=== PATIENT | female | born 1935 | race Caucasian/White ===

== ENCOUNTER 2021-04-26 11:05 | Inpatient (IN) | payer MEDICARE ==
[2021-04-26 12:14] LABS: #Basophils 0.1 10x3/uL (0.0-0.2); #Eosinphils 0.1 10x3/uL (0.0-0.5); #Monocytes 0.6 10x3/uL (0.0-1.1); #Neutrophils 5.9 10x3/uL (1.5-8.4); %Basophils 0.7 % (0.0-2.0); %Eosinophils 1.2 % (0.0-6.0); %Lymphocytes 11.6 % (18.0-47.0); %Monocytes 7.6 % (0.0-10.0); %Neutrophils 78.6 % (40.0-75.0); Hemoglobin 13.2 g/dL (12.0-15.5); Mean Corpuscular HGB CONC 31.9 g/dL (32.0-36.0); Mean Corpuscular Hemoglobin 29.4 pg (27.0-33.0); Mean Corpuscular Volume 92.2 fl (81.6-98.3); Mean Platelet Volume 10.9 fl (7.4-10.4); Platelet Count 268 10x3/uL (150-450); RBC Distribution Width 13.5 % (11.5-14.5); Red Blood Cell (RBC) Count 4.49 10x6/uL (3.90-5.03); White Blood Cell (WBC) Count 7.5 10x3/uL (3.5-10.5)
[2021-04-26 12:31] LABS: ALT (SGPT) 16 U/L (8-55); AST (SGOT) 16 U/L (5-34); Albumin 4.1 g/dL (3.4-4.8); Alkaline Phosphatase 81 U/L (40-110); Anion Gap 14 mmol/L (10-20); BUN (Urea Nitrogen) 25 mg/dL (9.8-20.1); Bilirubin, Total 0.5 mg/dL (0.2-1.2); Calc. Creatinine Clearance 0 mL/min (70-130); Calcium 9.4 mg/dL (7.8-10.44); Carbon Dioxide 24 mmol/L (23-31); Chloride 105 mmol/L (98-107); Globulin 2.4 g/dL (2.4-3.5); Glucose 116 mg/dL (83-110); Lipase 22 U/L (8-78); Potassium 5.2 mmol/L (3.5-5.1); Protein, Total 6.5 g/dL (5.8-8.1); Sodium 138 mmol/L (136-145)
[2021-04-26 12:51] LABS: CKMB 2.1 ng/mL (0-6.6)
[2021-04-26] MEDS ORDERED: Aspirin 325 mg Enteric Coated Tablet ONE (13:28)
[2021-04-26] MEDS ORDERED: Nitroglycerin 2% Ointment 1 INCH/1 GM Packet ONE (13:29)
[2021-04-26 15:51] LABS: Troponin I 0.226 ng/mL (< 0.028)
[2021-04-26] MEDS: Sodium Chloride 0.9% 1,000 ML IV SCH (20:45)
[2021-04-26 21:15] LABS: Troponin I 0.211 ng/mL (< 0.028)
[2021-04-26 22:41] VITALS: BMI 25.0
[2021-04-26] MEDS ORDERED: FLU VACC QS2021-22(65YR UP)/PF 240 MCG/0.7 ML SYRINGE IM ONE (22:45)
[2021-04-27 04:30] LABS: #Basophils 0.1 10x3/uL (0.0-0.2); #Eosinphils 0.1 10x3/uL (0.0-0.5); #Monocytes 0.6 10x3/uL (0.0-1.1); #Neutrophils 5.7 10x3/uL (1.5-8.4); %Basophils 0.9 % (0.0-2.0); %Eosinophils 1.6 % (0.0-6.0); %Lymphocytes 15.1 % (18.0-47.0); %Monocytes 7.4 % (0.0-10.0); %Neutrophils 74.6 % (40.0-75.0); Hemoglobin 12.5 g/dL (12.0-15.5); Mean Corpuscular HGB CONC 32.2 g/dL (32.0-36.0); Mean Corpuscular Hemoglobin 29.2 pg (27.0-33.0); Mean Corpuscular Volume 90.7 fl (81.6-98.3); Mean Platelet Volume 10.7 fl (7.4-10.4); Platelet Count 260 10x3/uL (150-450); RBC Distribution Width 13.4 % (11.5-14.5); Red Blood Cell (RBC) Count 4.28 10x6/uL (3.90-5.03); White Blood Cell (WBC) Count 7.6 10x3/uL (3.5-10.5)
[2021-04-27 04:50] LABS: Anion Gap 15 mmol/L (10-20); BUN (Urea Nitrogen) 26 mg/dL (9.8-20.1); Calc. Creatinine Clearance 36 mL/min (70-130); Calcium 9.2 mg/dL (7.8-10.44); Carbon Dioxide 20 mmol/L (23-31); Chloride 109 mmol/L (98-107); Glucose 104 mg/dL (83-110); Potassium 4.3 mmol/L (3.5-5.1); Sodium 140 mmol/L (136-145)
[2021-04-27] MEDS ORDERED: Calcium Carbonate 500 MG ChewTAB PO PRN (05:38)
[2021-04-27] MEDS ORDERED: Pramipexole Di-HCl 1 MG TAB PO SCH ×3 (09:00→21:00)
[2021-04-27] MEDS: Sodium Chloride 0.9% 1,000 ML IV SCH (10:42)
[2021-04-27] MEDS: Acetaminophen 325 MG TAB PO PRN (12:55)
[2021-04-27] MEDS ORDERED: Labetalol HCl 100 MG/20 ML VIAL SLOW IVP PRN (13:56)
[2021-04-27] MEDS ORDERED: Metoprolol Tartrate 25 MG TAB PO SCH (14:00)
[2021-04-27] MEDS ORDERED: Amlodipine 5 MG TAB PO SCH (14:00)
[2021-04-27 19:42] LABS: SARS-CoV-2 NAA Rapid Test Not Detected (NotDetected)
[2021-04-27] MEDS: Metoprolol Tartrate 25 MG TAB PO SCH (20:48)
[2021-04-28] MEDS ORDERED: hydrALAZINE 20 MG/ML VIAL SLOW IVP PRN (00:36)
[2021-04-28 05:20] LABS: #Basophils 0.1 10x3/uL (0.0-0.2); #Eosinphils 0.1 10x3/uL (0.0-0.5); #Monocytes 0.6 10x3/uL (0.0-1.1); #Neutrophils 6.1 10x3/uL (1.5-8.4); %Eosinophils 1.5 % (0.0-6.0); %Lymphocytes 12.4 % (18.0-47.0); %Monocytes 7.4 % (0.0-10.0); %Neutrophils 77.4 % (40.0-75.0); Hemoglobin 13.5 g/dL (12.0-15.5); Mean Corpuscular HGB CONC 33.2 g/dL (32.0-36.0); Mean Corpuscular Hemoglobin 29.7 pg (27.0-33.0); Mean Corpuscular Volume 89.6 fl (81.6-98.3); Mean Platelet Volume 11.1 fl (7.4-10.4); Platelet Count 275 10x3/uL (150-450); RBC Distribution Width 13.4 % (11.5-14.5); Red Blood Cell (RBC) Count 4.54 10x6/uL (3.90-5.03); White Blood Cell (WBC) Count 7.9 10x3/uL (3.5-10.5)
[2021-04-28 05:40] LABS: ALT (SGPT) 17 U/L (8-55); AST (SGOT) 20 U/L (5-34); Albumin 4.2 g/dL (3.4-4.8); Alkaline Phosphatase 73 U/L (40-110); Anion Gap 15 mmol/L (10-20); BUN (Urea Nitrogen) 23 mg/dL (9.8-20.1); Bilirubin, Total 0.7 mg/dL (0.2-1.2); Calc. Creatinine Clearance 43 mL/min (70-130); Calcium 9.6 mg/dL (7.8-10.44); Carbon Dioxide 21 mmol/L (23-31); Chloride 107 mmol/L (98-107); Cholesterol 163 mg/dl (< 200 Desired); Globulin 2.8 g/dL (2.4-3.5); Glucose 105 mg/dL (83-110); HDL Cholesterol 54 mg/dL (>60 Neg Risk); LDL Cholesterol, Calculated 89 mg/dL; Magnesium 1.9 mg/dL (1.6-2.6); Phosphorus 3.3 mg/dL (2.3-4.7); Potassium 3.6 mmol/L (3.5-5.1); Sodium 139 mmol/L (136-145); Triglycerides 98 mg/dL (Less than 150)
[2021-04-28 05:52] LABS: Thyroid Stimulating Hormone 0.8149 uIU/mL (0.35-4.94)
[2021-04-28 07:55] LABS: Syphilis Antibody Nonreactive (Nonreactive); Syphilis Antibody Index 0.07 S/CO (<1.00 Non-Reactive)
[2021-04-28] MEDS: Metoprolol Tartrate 25 MG TAB PO SCH (07:59)
[2021-04-28] MEDS: Acetaminophen 325 MG TAB PO PRN (08:29)
[2021-04-28] MEDS ORDERED: Amlodipine 5 MG TAB PO SCH (09:00)
[2021-04-28] MEDS ORDERED: Spironolactone 25 MG TAB PO SCH (09:00)
[2021-04-28] MEDS ORDERED: Magnesium Oxide 400 MG TAB PO SCH (09:00)
[2021-04-28] MEDS ORDERED: Clopidogrel Bisulfate 75 MG TAB PO SCH (09:00)
[2021-04-28] MEDS ORDERED: Enoxaparin Sodium 30 MG/0.3 ML SYRINGE SC SCH (09:00)
[2021-04-28 11:30] LABS: Hemoglobin A1c 5.7 % (4.0-6.0)
[2021-04-28 12:05] VITALS: TEMP 98.2
[2021-04-28 12:13] VITALS: BP 135/64
== END 2021-04-28 16:25 | disposition home or self-care (01) | DRG 304 ==
LOC: CSHERS 11:05 → CSHTELE 11:06 → INTOOBSV 11:06 → OBSVTOIN 04-28 08:47
PROVIDERS: ADMIT Student in an Organized Health Care Education/Training Program; ATTEND Family Medicine
DX: I10 Essential (primary) hypertension (principal); G93.41 Metabolic encephalopathy; Z20.822 Contact with and (suspected) exposure to COVID-19; R73.03 Prediabetes; K21.9 Gastro-esophageal reflux disease without esophagitis; G89.29 Other chronic pain; M19.90 Unspecified osteoarthritis, unspecified site; F51.04 Psychophysiologic insomnia; I25.118 Atherosclerotic heart disease of native coronary artery with other forms of angina pectoris; R07.89 Other chest pain; G25.81 Restless legs syndrome; F03.90 Unspecified dementia, unspecified severity, without behavioral disturbance, psychotic disturbance, mood disturbance, and anxiety; I73.9 Peripheral vascular disease, unspecified; E78.2 Mixed hyperlipidemia; Z96.653 Presence of artificial knee joint, bilateral; Z88.2 Allergy status to sulfonamides; Z79.82 Long term (current) use of aspirin; Z79.899 Other long term (current) drug therapy; Z95.5 Presence of coronary angioplasty implant and graft; Z98.890 Other specified postprocedural states; Z88.8 Allergy status to other drugs, medicaments and biological substances
CPT/HCPCS: 0240U; 36415; 71045; 80048; 80053; 80061; 82553; 82607; 82746; 83036; 83690; 83735; 84100; 84436; 84443; 84484; 85025; 85379; 86780; 93005; 93010; 94760; 96372; 96374; G0378; J0360; J1650; J7050

== ENCOUNTER 2022-08-25 16:04 | Emergency (ER) | payer MEDICARE ==
[2022-08-25 17:10] LABS: #Basophils 0.1 10x3/uL (0.0-0.2); #Eosinphils 0.2 10x3/uL (0.0-0.5); #Monocytes 0.5 10x3/uL (0.0-1.1); #Neutrophils 4.9 10x3/uL (1.5-8.4); %Basophils 0.9 % (0.0-2.0); %Eosinophils 2.3 % (0.0-6.0); %Lymphocytes 13.7 % (18.0-47.0); %Monocytes 7.4 % (0.0-10.0); %Neutrophils 75.5 % (40.0-75.0); Hemoglobin 12.5 g/dL (12.0-15.5); Mean Corpuscular HGB CONC 33.3 g/dL (32.0-36.0); Mean Corpuscular Hemoglobin 29.9 pg (27.0-33.0); Mean Corpuscular Volume 89.7 fl (81.6-98.3); Mean Platelet Volume 10.3 fl (7.4-10.4); Platelet Count 323 10x3/uL (150-450); RBC Distribution Width 13.2 % (11.5-14.5); Red Blood Cell (RBC) Count 4.18 10x6/uL (3.90-5.03); White Blood Cell (WBC) Count 6.5 10x3/uL (3.5-10.5)
[2022-08-25 17:15] LABS: ALT (SGPT) 17 U/L (8-55); AST (SGOT) 17 U/L (5-34); Albumin 4.1 g/dL (3.4-4.8); Alkaline Phosphatase 87 U/L (40-110); Anion Gap 15 mmol/L (10-20); BUN (Urea Nitrogen) 21 mg/dL (9.8-20.1); Bilirubin, Total 0.5 mg/dL (0.2-1.2); CK (CPK) 70 U/L (29-168); Calc. Creatinine Clearance 0 mL/min (70-130); Calcium 9.5 mg/dL (7.8-10.44); Carbon Dioxide 22 mmol/L (23-31); Chloride 106 mmol/L (98-107); Estimated GFR 40; Globulin 2.5 g/dL (2.4-3.5); Glucose 100 mg/dL (83-110); Magnesium 2.2 mg/dL (1.6-2.6); Potassium 4.5 mmol/L (3.5-5.1); Protein, Total 6.6 g/dL (5.8-8.1); Sodium 138 mmol/L (136-145)
[2022-08-25 17:32] LABS: PTT 24.5 sec (22.0-33.0); Prothrombin Time 10.5 sec (9.5-12.1)
[2022-08-25 17:50] LABS: Bilirubin Neg (Negative); Blood, Urine Negative (Negative); Clarity Clear (Clear); Glucose, Urine (Dipstick) Normal (Negative); Ketone, Urine Negative (Negative); Leukocyte Negative (Negative); Nitrite Negative (Negative); Protein, Urine (Dipstick) 15 mg/dl (Neg-Trace); Urobilinogen Normal mg/dL (Less than 2)
== END 2022-08-25 19:00 | disposition home or self-care (01) ==
LOC: CSHERS 16:04
DX: S06.0X0A Concussion without loss of consciousness, initial encounter (principal); R53.1 Weakness; I25.10 Atherosclerotic heart disease of native coronary artery without angina pectoris; I11.0 Hypertensive heart disease with heart failure; I50.9 Heart failure, unspecified
CPT/HCPCS: 70450; 70486; 71045; 80053; 81003; 82550; 83735; 83880; 84443; 84484; 85025; 85610; 85730; 93005

== ENCOUNTER 2022-08-31 22:45 | Inpatient (IN) | payer MEDICARE ==
[2022-08-31 23:30] LABS: Bilirubin Neg (Negative); Blood, Urine Negative (Negative); Clarity Clear (Clear); Glucose, Urine (Dipstick) Normal (Negative); Ketone, Urine Negative (Negative); Leukocyte Negative (Negative); Nitrite Negative (Negative); Protein, Urine (Dipstick) Negative (Neg-Trace); Urobilinogen Normal mg/dL (Less than 2); pH, Urine 6.5 (5.0-9.0)
[2022-08-31 23:44] LABS: #Basophils 0.1 10x3/uL (0.0-0.2); #Eosinphils 0.2 10x3/uL (0.0-0.5); #Monocytes 0.5 10x3/uL (0.0-1.1); #Neutrophils 4.5 10x3/uL (1.5-8.4); %Basophils 1.2 % (0.0-2.0); %Eosinophils 3.2 % (0.0-6.0); %Lymphocytes 18.6 % (18.0-47.0); %Neutrophils 68.5 % (40.0-75.0); Hemoglobin 11.9 g/dL (12.0-15.5); Mean Corpuscular HGB CONC 32.5 g/dL (32.0-36.0); Mean Corpuscular Hemoglobin 29.8 pg (27.0-33.0); Mean Corpuscular Volume 91.5 fl (81.6-98.3); Mean Platelet Volume 10.5 fl (7.4-10.4); Platelet Count 285 10x3/uL (150-450); RBC Distribution Width 13.4 % (11.5-14.5); White Blood Cell (WBC) Count 6.6 10x3/uL (3.5-10.5)
[2022-09-01 00:07] LABS: ALT (SGPT) 14 U/L (8-55); AST (SGOT) 16 U/L (5-34); Albumin 3.8 g/dL (3.4-4.8); Alkaline Phosphatase 87 U/L (40-110); Anion Gap 15 mmol/L (10-20); BUN (Urea Nitrogen) 21 mg/dL (9.8-20.1); Bilirubin, Total 0.3 mg/dL (0.2-1.2); Calc. Creatinine Clearance 0 mL/min (70-130); Calcium 8.7 mg/dL (7.8-10.44); Carbon Dioxide 21 mmol/L (23-31); Chloride 107 mmol/L (98-107); Estimated GFR 37; Globulin 2.3 g/dL (2.4-3.5); Glucose 98 mg/dL (83-110); Lipase 29 U/L (8-78); Potassium 3.6 mmol/L (3.5-5.1); Protein, Total 6.1 g/dL (5.8-8.1); Sodium 139 mmol/L (136-145)
[2022-09-01] MEDS ORDERED: Aspirin Chewable 81 MG TAB ONE (00:31)
[2022-09-01 00:34] LABS: CKMB 2.3 ng/mL (0-6.6)
[2022-09-01] MEDS ORDERED: Acetaminophen 325 MG TAB PO PRN (01:11)
[2022-09-01] MEDS ORDERED: Senokot S 8.6-50 MG TAB PO PRN (01:11)
[2022-09-01] MEDS ORDERED: Ondansetron PF 4 MG/2 ML Vial IVP PRN (01:11)
[2022-09-01] MEDS ORDERED: Calcium Carbonate 500 MG ChewTAB PO PRN (01:11)
[2022-09-01] MEDS ORDERED: Guaifenesin DM 100-10/5 ML UDCUP PO PRN (01:11)
[2022-09-01] MEDS ORDERED: Nitroglycerin 0.4 MG TAB (25 Tab Bottle) SL PRN (01:15)
[2022-09-01 04:35] LABS: CKMB 3.9 ng/mL (0-6.6)
[2022-09-01] MEDS: Spironolactone 25 MG TAB PO SCH (08:45)
[2022-09-01] MEDS: Clopidogrel Bisulfate 75 MG TAB PO SCH (08:46)
[2022-09-01] MEDS: Famotidine 20 MG TAB PO SCH (08:46)
[2022-09-01] MEDS: Amlodipine 5 MG TAB PO SCH (08:46)
[2022-09-01] MEDS: Magnesium Oxide 400 MG TAB PO SCH (08:47)
[2022-09-01] MEDS: Pramipexole Di-HCl 1 MG TAB PO SCH (08:48)
[2022-09-01] MEDS: Potassium Chloride 10 MEQ TAB PO SCH (08:48)
[2022-09-01] MEDS ORDERED: Famotidine 20 MG TAB ONE (08:54)
[2022-09-01] MEDS ORDERED: Amlodipine 5 MG TAB ONE (08:54)
[2022-09-01] MEDS ORDERED: Metoprolol Tartrate 25 MG TAB ONE (08:55)
[2022-09-01] MEDS ORDERED: Clopidogrel Bisulfate 75 MG TAB ONE (08:56)
[2022-09-01] MEDS ORDERED: Metoprolol Tartrate 25 MG TAB PO SCH (09:00)
[2022-09-01] MEDS ORDERED: Aspirin 81 mg Enteric Coated Tablet PO SCH (09:00)
[2022-09-01] MEDS ORDERED: Iopamidol 300 61% 100 ML VIAL FS ONE (10:39)
[2022-09-01 11:42] LABS: Anion Gap 17 mmol/L (10-20); BUN (Urea Nitrogen) 21 mg/dL (9.8-20.1); Calc. Creatinine Clearance 0 mL/min (70-130); Calcium 8.7 mg/dL (7.8-10.44); Carbon Dioxide 18 mmol/L (23-31); Chloride 111 mmol/L (98-107); Estimated GFR 48; Glucose 104 mg/dL (83-110); Potassium 4.9 mmol/L (3.5-5.1); Sodium 141 mmol/L (136-145)
[2022-09-01 11:50] VITALS: BMI 24.5
[2022-09-01] MEDS ORDERED: FLU VACC QS2022-23(65YR UP)/PF 240 MCG/0.7 ML SYRINGE IM ONE (12:00)
[2022-09-01] MEDS: Carvedilol 6.25 MG TAB PO SCH (17:53)
[2022-09-01 20:05] LABS: Troponin I 0.273 ng/mL (< 0.028)
[2022-09-01] MEDS: Simvastatin 10 MG TAB PO SCH (21:13)
[2022-09-02 04:27] LABS: #Basophils 0.1 10x3/uL (0.0-0.2); #Eosinphils 0.3 10x3/uL (0.0-0.5); #Monocytes 0.5 10x3/uL (0.0-1.1); #Neutrophils 3.6 10x3/uL (1.5-8.4); %Basophils 1.7 % (0.0-2.0); %Eosinophils 5.9 % (0.0-6.0); %Lymphocytes 16.5 % (18.0-47.0); %Monocytes 9.4 % (0.0-10.0); %Neutrophils 66.1 % (40.0-75.0); Mean Corpuscular HGB CONC 32.6 g/dL (32.0-36.0); Mean Corpuscular Hemoglobin 29.6 pg (27.0-33.0); Mean Corpuscular Volume 90.9 fl (81.6-98.3); Mean Platelet Volume 10.7 fl (7.4-10.4); Platelet Count 281 10x3/uL (150-450); RBC Distribution Width 13.5 % (11.5-14.5); Red Blood Cell (RBC) Count 4.39 10x6/uL (3.90-5.03); White Blood Cell (WBC) Count 5.4 10x3/uL (3.5-10.5)
[2022-09-02 04:49] LABS: Anion Gap 14 mmol/L (10-20); BUN (Urea Nitrogen) 18 mg/dL (9.8-20.1); Calc. Creatinine Clearance 31 mL/min (70-130); Calcium 9.3 mg/dL (7.8-10.44); Carbon Dioxide 23 mmol/L (23-31); Chloride 108 mmol/L (98-107); Estimated GFR 44; Glucose 98 mg/dL (83-110); Magnesium 2.1 mg/dL (1.6-2.6); Phosphorus 3.8 mg/dL (2.3-4.7); Potassium 4.2 mmol/L (3.5-5.1); Sodium 141 mmol/L (136-145)
[2022-09-02] MEDS: Carvedilol 6.25 MG TAB PO SCH ×2 (06:43→17:06)
[2022-09-02] MEDS: Amlodipine 5 MG TAB PO SCH (06:44)
[2022-09-02] MEDS: Clopidogrel Bisulfate 75 MG TAB PO SCH (08:37)
[2022-09-02] MEDS: Pramipexole Di-HCl 1 MG TAB PO SCH (08:37)
[2022-09-02] MEDS: Spironolactone 25 MG TAB PO SCH (08:38)
[2022-09-02] MEDS: Aspirin 81 mg Enteric Coated Tablet PO SCH (08:38)
[2022-09-02] MEDS: Famotidine 20 MG TAB PO SCH (08:41)
[2022-09-02] MEDS: Potassium Chloride 10 MEQ TAB PO SCH (08:41)
[2022-09-02] MEDS: Magnesium Oxide 400 MG TAB PO SCH (08:42)
[2022-09-02 09:04] LABS: Troponin I 0.177 ng/mL (< 0.028)
[2022-09-02] MEDS ORDERED: QUEtiapine 25 MG TAB PO SCH (15:00)
[2022-09-02] MEDS: CEFAZOLIN 2 GM in Sodium Chloride 0.9% 100 ML IVPB SCH ×2 (15:44→21:01)
[2022-09-02] MEDS: Simvastatin 10 MG TAB PO SCH (20:52)
[2022-09-02] MEDS: QUEtiapine 25 MG TAB PO SCH (22:00)
[2022-09-03 04:33] LABS: #Basophils 0.1 10x3/uL (0.0-0.2); #Eosinphils 0.3 10x3/uL (0.0-0.5); #Monocytes 0.4 10x3/uL (0.0-1.1); #Neutrophils 3.5 10x3/uL (1.5-8.4); %Basophils 1.3 % (0.0-2.0); %Eosinophils 4.8 % (0.0-6.0); %Lymphocytes 20.9 % (18.0-47.0); %Monocytes 7.8 % (0.0-10.0); Hemoglobin 12.8 g/dL (12.0-15.5); Mean Corpuscular HGB CONC 32.6 g/dL (32.0-36.0); Mean Corpuscular Hemoglobin 29.5 pg (27.0-33.0); Mean Corpuscular Volume 90.6 fl (81.6-98.3); Mean Platelet Volume 10.3 fl (7.4-10.4); Platelet Count 271 10x3/uL (150-450); RBC Distribution Width 13.6 % (11.5-14.5); Red Blood Cell (RBC) Count 4.34 10x6/uL (3.90-5.03); White Blood Cell (WBC) Count 5.4 10x3/uL (3.5-10.5)
[2022-09-03 04:59] LABS: Anion Gap 17 mmol/L (10-20); BUN (Urea Nitrogen) 21 mg/dL (9.8-20.1); Calc. Creatinine Clearance 32 mL/min (70-130); Calcium 9.1 mg/dL (7.8-10.44); Carbon Dioxide 20 mmol/L (23-31); Chloride 108 mmol/L (98-107); Estimated GFR 46; Glucose 97 mg/dL (83-110); Potassium 4.4 mmol/L (3.5-5.1); Sodium 141 mmol/L (136-145)
[2022-09-03] MEDS: CEFAZOLIN 2 GM in Sodium Chloride 0.9% 100 ML IVPB SCH (05:51)
[2022-09-03] MEDS: Aspirin 81 mg Enteric Coated Tablet PO SCH (10:37)
[2022-09-03] MEDS: Amlodipine 5 MG TAB PO SCH (10:37)
[2022-09-03] MEDS: Famotidine 20 MG TAB PO SCH (10:38)
[2022-09-03] MEDS: Potassium Chloride 10 MEQ TAB PO SCH (10:38)
[2022-09-03] MEDS: Pramipexole Di-HCl 1 MG TAB PO SCH (10:38)
[2022-09-03] MEDS: Clopidogrel Bisulfate 75 MG TAB PO SCH (10:38)
[2022-09-03] MEDS: Spironolactone 25 MG TAB PO SCH (10:39)
[2022-09-03] MEDS: Magnesium Oxide 400 MG TAB PO SCH (10:40)
[2022-09-03] MEDS: Carvedilol 6.25 MG TAB PO SCH ×2 (10:40→16:37)
[2022-09-03 16:56] LABS: Syphilis Antibody Nonreactive (Nonreactive); Syphilis Antibody Index 0.06 S/CO (<1.00 Non-Reactive)
[2022-09-03] MEDS: QUEtiapine 25 MG TAB PO SCH (21:37)
[2022-09-03] MEDS: Simvastatin 10 MG TAB PO SCH (21:37)
[2022-09-04 05:12] LABS: Anion Gap 15 mmol/L (10-20); BUN (Urea Nitrogen) 21 mg/dL (9.8-20.1); Calc. Creatinine Clearance 30 mL/min (70-130); Calcium 9.5 mg/dL (7.8-10.44); Carbon Dioxide 22 mmol/L (23-31); Chloride 108 mmol/L (98-107); Estimated GFR 41; Glucose 99 mg/dL (83-110); Potassium 4.4 mmol/L (3.5-5.1); Sodium 141 mmol/L (136-145)
[2022-09-04 05:26] LABS: #Basophils 0.1 10x3/uL (0.0-0.2); #Eosinphils 0.3 10x3/uL (0.0-0.5); #Monocytes 0.5 10x3/uL (0.0-1.1); #Neutrophils 3.9 10x3/uL (1.5-8.4); %Basophils 1.5 % (0.0-2.0); %Eosinophils 5.3 % (0.0-6.0); %Monocytes 8.4 % (0.0-10.0); %Neutrophils 66.6 % (40.0-75.0); Hemoglobin 13.3 g/dL (12.0-15.5); Mean Corpuscular Hemoglobin 29.2 pg (27.0-33.0); Mean Corpuscular Volume 91.2 fl (81.6-98.3); Mean Platelet Volume 10.6 fl (7.4-10.4); Platelet Count 277 10x3/uL (150-450); RBC Distribution Width 13.6 % (11.5-14.5); Red Blood Cell (RBC) Count 4.56 10x6/uL (3.90-5.03); White Blood Cell (WBC) Count 5.8 10x3/uL (3.5-10.5)
[2022-09-04] MEDS: Aspirin 81 mg Enteric Coated Tablet PO SCH (08:37)
[2022-09-04] MEDS: Amlodipine 5 MG TAB PO SCH (08:38)
[2022-09-04] MEDS: Spironolactone 25 MG TAB PO SCH (08:38)
[2022-09-04] MEDS: Carvedilol 6.25 MG TAB PO SCH ×2 (08:38→16:44)
[2022-09-04] MEDS: Famotidine 20 MG TAB PO SCH (08:38)
[2022-09-04] MEDS: Folic Acid 1 MG TAB PO SCH (08:38)
[2022-09-04] MEDS: Pramipexole Di-HCl 1 MG TAB PO SCH (08:39)
[2022-09-04] MEDS: Clopidogrel Bisulfate 75 MG TAB PO SCH (08:39)
[2022-09-04] MEDS: Potassium Chloride 10 MEQ TAB PO SCH (10:18)
[2022-09-04] MEDS: Magnesium Oxide 400 MG TAB PO SCH (10:18)
[2022-09-04] MEDS: QUEtiapine 25 MG TAB PO SCH (21:11)
[2022-09-04] MEDS: Simvastatin 10 MG TAB PO SCH (21:11)
[2022-09-05 05:44] LABS: #Basophils 0.1 10x3/uL (0.0-0.2); #Eosinphils 0.3 10x3/uL (0.0-0.5); #Monocytes 0.5 10x3/uL (0.0-1.1); #Neutrophils 4.2 10x3/uL (1.5-8.4); %Eosinophils 4.8 % (0.0-6.0); %Lymphocytes 16.2 % (18.0-47.0); %Monocytes 8.3 % (0.0-10.0); %Neutrophils 69.4 % (40.0-75.0); Hemoglobin 13.2 g/dL (12.0-15.5); Mean Corpuscular HGB CONC 32.5 g/dL (32.0-36.0); Mean Corpuscular Hemoglobin 29.4 pg (27.0-33.0); Mean Corpuscular Volume 90.4 fl (81.6-98.3); Platelet Count 273 10x3/uL (150-450); RBC Distribution Width 13.6 % (11.5-14.5); Red Blood Cell (RBC) Count 4.49 10x6/uL (3.90-5.03); White Blood Cell (WBC) Count 6.1 10x3/uL (3.5-10.5)
[2022-09-05 05:56] LABS: Anion Gap 17 mmol/L (10-20); BUN (Urea Nitrogen) 24 mg/dL (9.8-20.1); Calc. Creatinine Clearance 30 mL/min (70-130); Calcium 9.4 mg/dL (7.8-10.44); Carbon Dioxide 17 mmol/L (23-31); Chloride 107 mmol/L (98-107); Estimated GFR 42; Glucose 89 mg/dL (83-110); Sodium 136 mmol/L (136-145)
[2022-09-05 06:01] LABS: Potassium 5.2 mmol/L (3.5-5.1)
[2022-09-05] MEDS: Aspirin 81 mg Enteric Coated Tablet PO SCH (08:37)
[2022-09-05] MEDS: Carvedilol 6.25 MG TAB PO SCH ×2 (08:37→17:13)
[2022-09-05] MEDS: Spironolactone 25 MG TAB PO SCH (08:37)
[2022-09-05] MEDS: Amlodipine 5 MG TAB PO SCH (08:37)
[2022-09-05] MEDS: Folic Acid 1 MG TAB PO SCH (08:37)
[2022-09-05] MEDS: Potassium Chloride 10 MEQ TAB PO SCH (08:38)
[2022-09-05] MEDS: Famotidine 20 MG TAB PO SCH (08:38)
[2022-09-05] MEDS: Clopidogrel Bisulfate 75 MG TAB PO SCH (08:38)
[2022-09-05] MEDS: Pramipexole Di-HCl 1 MG TAB PO SCH (08:38)
[2022-09-05] MEDS: Magnesium Oxide 400 MG TAB PO SCH (08:39)
[2022-09-05 16:46] LABS: Anion Gap 15 mmol/L (10-20); BUN (Urea Nitrogen) 30 mg/dL (9.8-20.1); Calc. Creatinine Clearance 23 mL/min (70-130); Calcium 9.1 mg/dL (7.8-10.44); Carbon Dioxide 21 mmol/L (23-31); Chloride 106 mmol/L (98-107); Estimated GFR 30; Glucose 112 mg/dL (83-110); Potassium 4.7 mmol/L (3.5-5.1); Sodium 137 mmol/L (136-145)
[2022-09-05] MEDS ORDERED: QUEtiapine 25 MG TAB ONE (19:44)
[2022-09-05] MEDS: Simvastatin 10 MG TAB PO SCH (21:54)
[2022-09-05] MEDS: QUEtiapine 25 MG TAB PO SCH (21:54)
[2022-09-06] MEDS ORDERED: Acetaminophen 325 MG TAB PO SCH (03:00)
[2022-09-06 03:49] LABS: #Basophils 0.1 10x3/uL (0.0-0.2); #Eosinphils 0.3 10x3/uL (0.0-0.5); #Monocytes 0.5 10x3/uL (0.0-1.1); #Neutrophils 3.3 10x3/uL (1.5-8.4); %Basophils 1.5 % (0.0-2.0); %Eosinophils 5.6 % (0.0-6.0); %Lymphocytes 22.3 % (18.0-47.0); %Monocytes 9.5 % (0.0-10.0); %Neutrophils 60.7 % (40.0-75.0); Hemoglobin 13.3 g/dL (12.0-15.5); Mean Corpuscular HGB CONC 32.1 g/dL (32.0-36.0); Mean Corpuscular Hemoglobin 29.6 pg (27.0-33.0); Mean Platelet Volume 10.5 fl (7.4-10.4); Platelet Count 257 10x3/uL (150-450); RBC Distribution Width 13.5 % (11.5-14.5); White Blood Cell (WBC) Count 5.4 10x3/uL (3.5-10.5)
[2022-09-06 03:59] LABS: Anion Gap 16 mmol/L (10-20); BUN (Urea Nitrogen) 36 mg/dL (9.8-20.1); Calc. Creatinine Clearance 26 mL/min (70-130); Calcium 9.3 mg/dL (7.8-10.44); Carbon Dioxide 19 mmol/L (23-31); Chloride 107 mmol/L (98-107); Estimated GFR 35; Glucose 94 mg/dL (83-110); Magnesium 2.3 mg/dL (1.6-2.6); Phosphorus 4.2 mg/dL (2.3-4.7); Potassium 4.5 mmol/L (3.5-5.1); Sodium 137 mmol/L (136-145)
[2022-09-06] MEDS: Famotidine 20 MG TAB PO SCH (10:50)
[2022-09-06] MEDS: Carvedilol 6.25 MG TAB PO SCH ×2 (10:50→18:40)
[2022-09-06] MEDS: Aspirin 81 mg Enteric Coated Tablet PO SCH (10:51)
[2022-09-06] MEDS: Clopidogrel Bisulfate 75 MG TAB PO SCH (10:51)
[2022-09-06] MEDS: Folic Acid 1 MG TAB PO SCH (10:51)
[2022-09-06] MEDS: Pramipexole Di-HCl 1 MG TAB PO SCH (10:51)
[2022-09-06] MEDS: Magnesium Oxide 400 MG TAB PO SCH (10:52)
[2022-09-06] MEDS: Amlodipine 5 MG TAB PO SCH (10:52)
[2022-09-06] MEDS: QUEtiapine 25 MG TAB PO SCH (21:39)
[2022-09-06] MEDS: Simvastatin 10 MG TAB PO SCH (21:39)
[2022-09-07 03:44] LABS: #Basophils 0.1 10x3/uL (0.0-0.2); #Eosinphils 0.3 10x3/uL (0.0-0.5); #Monocytes 0.6 10x3/uL (0.0-1.1); #Neutrophils 3.5 10x3/uL (1.5-8.4); %Basophils 1.6 % (0.0-2.0); %Eosinophils 4.8 % (0.0-6.0); %Lymphocytes 20.8 % (18.0-47.0); %Monocytes 9.9 % (0.0-10.0); %Neutrophils 62.7 % (40.0-75.0); Hemoglobin 12.9 g/dL (12.0-15.5); Mean Corpuscular HGB CONC 31.8 g/dL (32.0-36.0); Mean Corpuscular Hemoglobin 29.5 pg (27.0-33.0); Mean Corpuscular Volume 92.7 fl (81.6-98.3); Mean Platelet Volume 10.5 fl (7.4-10.4); Platelet Count 256 10x3/uL (150-450); RBC Distribution Width 13.5 % (11.5-14.5); Red Blood Cell (RBC) Count 4.38 10x6/uL (3.90-5.03); White Blood Cell (WBC) Count 5.6 10x3/uL (3.5-10.5)
[2022-09-07 03:54] LABS: Anion Gap 15 mmol/L (10-20); BUN (Urea Nitrogen) 44 mg/dL (9.8-20.1); Calc. Creatinine Clearance 25 mL/min (70-130); Calcium 9.3 mg/dL (7.8-10.44); Carbon Dioxide 19 mmol/L (23-31); Chloride 109 mmol/L (98-107); Estimated GFR 34; Glucose 94 mg/dL (83-110); Potassium 4.6 mmol/L (3.5-5.1); Sodium 138 mmol/L (136-145)
[2022-09-07] MEDS: Sodium Chloride 0.9% 1,000 ML IV SCH ×2 (09:30→20:43)
[2022-09-07] MEDS: Carvedilol 6.25 MG TAB PO SCH ×2 (09:31→18:49)
[2022-09-07] MEDS: Aspirin 81 mg Enteric Coated Tablet PO SCH (09:32)
[2022-09-07] MEDS: Amlodipine 5 MG TAB PO SCH (09:32)
[2022-09-07] MEDS: Folic Acid 1 MG TAB PO SCH (09:33)
[2022-09-07] MEDS: Clopidogrel Bisulfate 75 MG TAB PO SCH (09:33)
[2022-09-07] MEDS: Famotidine 20 MG TAB PO SCH (09:33)
[2022-09-07] MEDS: Pramipexole Di-HCl 1 MG TAB PO SCH (09:34)
[2022-09-07] MEDS: Magnesium Oxide 400 MG TAB PO SCH (09:34)
[2022-09-07 16:51] LABS: Creatinine, Urine 31.06 mg/dL (47-110)
[2022-09-07] MEDS: Simvastatin 10 MG TAB PO SCH (20:43)
[2022-09-07] MEDS: QUEtiapine 25 MG TAB PO SCH (20:43)
[2022-09-08 04:56] LABS: #Basophils 0.1 10x3/uL (0.0-0.2); #Eosinphils 0.3 10x3/uL (0.0-0.5); #Monocytes 0.5 10x3/uL (0.0-1.1); #Neutrophils 2.8 10x3/uL (1.5-8.4); %Basophils 1.5 % (0.0-2.0); %Eosinophils 5.6 % (0.0-6.0); %Lymphocytes 24.3 % (18.0-47.0); %Monocytes 10.8 % (0.0-10.0); %Neutrophils 57.4 % (40.0-75.0); Hemoglobin 12.4 g/dL (12.0-15.5); Mean Corpuscular HGB CONC 31.4 g/dL (32.0-36.0); Mean Corpuscular Hemoglobin 29.2 pg (27.0-33.0); Mean Corpuscular Volume 93.2 fl (81.6-98.3); Mean Platelet Volume 10.7 fl (7.4-10.4); Platelet Count 229 10x3/uL (150-450); RBC Distribution Width 13.4 % (11.5-14.5); Red Blood Cell (RBC) Count 4.24 10x6/uL (3.90-5.03); White Blood Cell (WBC) Count 4.8 10x3/uL (3.5-10.5)
[2022-09-08 05:06] LABS: Anion Gap 14 mmol/L (10-20); BUN (Urea Nitrogen) 29 mg/dL (9.8-20.1); Calc. Creatinine Clearance 31 mL/min (70-130); Calcium 8.9 mg/dL (7.8-10.44); Carbon Dioxide 21 mmol/L (23-31); Chloride 109 mmol/L (98-107); Estimated GFR 44; Glucose 88 mg/dL (83-110); Potassium 4.5 mmol/L (3.5-5.1); Sodium 139 mmol/L (136-145)
[2022-09-08] MEDS: Amlodipine 5 MG TAB PO SCH (08:01)
[2022-09-08] MEDS: Carvedilol 6.25 MG TAB PO SCH (08:01)
[2022-09-08] MEDS: Famotidine 20 MG TAB PO SCH (08:02)
[2022-09-08] MEDS: Aspirin 81 mg Enteric Coated Tablet PO SCH (08:02)
[2022-09-08] MEDS: Folic Acid 1 MG TAB PO SCH (08:02)
[2022-09-08] MEDS: Clopidogrel Bisulfate 75 MG TAB PO SCH (08:02)
[2022-09-08] MEDS: Magnesium Oxide 400 MG TAB PO SCH (08:02)
[2022-09-08] MEDS: Pramipexole Di-HCl 1 MG TAB PO SCH (08:03)
[2022-09-08] MEDS: Sodium Chloride 0.9% 1,000 ML IV SCH (10:21)
[2022-09-08 11:49] VITALS: BP 122/65; TEMP 97.1
== END 2022-09-08 12:53 | DRG 281 ==
LOC: CSHERS 22:45 → INTOOBSV 09-01 01:01 → CSHERHOLD 09-01 01:01 → OBSVTOIN 09-01 04:54 → CSHTELE 09-01 10:36
PROVIDERS: ADMIT Student in an Organized Health Care Education/Training Program; ATTEND Internal Medicine
DX: I21.4 Non-ST elevation (NSTEMI) myocardial infarction (principal); I13.0 Hypertensive heart and chronic kidney disease with heart failure and stage 1 through stage 4 chronic kidney disease, or unspecified chronic kidney disease; I73.9 Peripheral vascular disease, unspecified; I25.10 Atherosclerotic heart disease of native coronary artery without angina pectoris; M19.90 Unspecified osteoarthritis, unspecified site; G25.81 Restless legs syndrome; K21.9 Gastro-esophageal reflux disease without esophagitis; Z96.653 Presence of artificial knee joint, bilateral; N18.30 Chronic kidney disease, stage 3 unspecified; G89.29 Other chronic pain; F03.90 Unspecified dementia, unspecified severity, without behavioral disturbance, psychotic disturbance, mood disturbance, and anxiety; F41.9 Anxiety disorder, unspecified; E78.2 Mixed hyperlipidemia; E87.5 Hyperkalemia; Z88.0 Allergy status to penicillin; Z79.82 Long term (current) use of aspirin; Z79.899 Other long term (current) drug therapy; Z95.5 Presence of coronary angioplasty implant and graft; Z98.890 Other specified postprocedural states; Z90.710 Acquired absence of both cervix and uterus
CPT/HCPCS: 36415; 70450; 71045; 71260; 74160; 76770; 80048; 80053; 81003; 82553; 82570; 82607; 83690; 83735; 83880; 84100; 84300; 84443; 84484; 85025; 86780; 93005; 93306; J1650; J3490; J7050; Q9967

== ENCOUNTER 2022-09-25 09:37 | Observation (INO) | payer MEDICARE ==
[2022-09-25 11:03] LABS: #Basophils 0.1 10x3/uL (0.0-0.2); #Eosinphils 0.1 10x3/uL (0.0-0.5); #Monocytes 0.4 10x3/uL (0.0-1.1); %Basophils 0.8 % (0.0-2.0); %Eosinophils 1.5 % (0.0-6.0); %Monocytes 5.8 % (0.0-10.0); %Neutrophils 82.6 % (40.0-75.0); Hemoglobin 11.9 g/dL (12.0-15.5); Mean Corpuscular HGB CONC 32.1 g/dL (32.0-36.0); Mean Corpuscular Hemoglobin 29.6 pg (27.0-33.0); Mean Corpuscular Volume 92.3 fl (81.6-98.3); Mean Platelet Volume 10.7 fl (7.4-10.4); Platelet Count 293 10x3/uL (150-450); RBC Distribution Width 13.5 % (11.5-14.5); Red Blood Cell (RBC) Count 4.02 10x6/uL (3.90-5.03); White Blood Cell (WBC) Count 7.3 10x3/uL (3.5-10.5)
[2022-09-25 11:09] LABS: ALT (SGPT) 12 U/L (8-55); AST (SGOT) 15 U/L (5-34); Alkaline Phosphatase 70 U/L (40-110); Anion Gap 15 mmol/L (10-20); BUN (Urea Nitrogen) 22 mg/dL (9.8-20.1); Bilirubin, Total 0.5 mg/dL (0.2-1.2); Calc. Creatinine Clearance 0 mL/min (70-130); Calcium 9.1 mg/dL (7.8-10.44); Carbon Dioxide 22 mmol/L (23-31); Chloride 108 mmol/L (98-107); Estimated GFR 42; Glucose 100 mg/dL (83-110); Potassium 4.5 mmol/L (3.5-5.1); Sodium 140 mmol/L (136-145)
[2022-09-25 11:26] LABS: CKMB 1.9 ng/mL (0-6.6)
[2022-09-25] MEDS ORDERED: Aspirin Chewable 81 MG TAB ONE (13:34)
[2022-09-25] MEDS ORDERED: Senokot S 8.6-50 MG TAB PO PRN (14:27)
[2022-09-25] MEDS ORDERED: Acetaminophen 325 MG TAB PO PRN (14:27)
[2022-09-25] MEDS ORDERED: Calcium Carbonate 500 MG ChewTAB PO PRN (14:27)
[2022-09-25] MEDS ORDERED: Guaifenesin DM 100-10/5 ML UDCUP PO PRN (14:35)
[2022-09-25] MEDS ORDERED: Furosemide 40 MG/4 ML VIAL SLOW IVP SCH (14:45)
[2022-09-25 15:41] LABS: Troponin I 0.037 ng/mL (< 0.028)
[2022-09-25 15:45] VITALS: BMI 24.0
[2022-09-25 19:39] LABS: Troponin I 0.036 ng/mL (< 0.028)
[2022-09-25] MEDS: QUEtiapine 25 MG TAB PO SCH (22:53)
[2022-09-25] MEDS: Simvastatin 10 MG TAB PO SCH (22:53)
[2022-09-26 06:27] LABS: ALT (SGPT) 11 U/L (8-55); AST (SGOT) 16 U/L (5-34); Albumin 3.9 g/dL (3.4-4.8); Alkaline Phosphatase 67 U/L (40-110); Anion Gap 14 mmol/L (10-20); BUN (Urea Nitrogen) 18 mg/dL (9.8-20.1); Bilirubin, Total 0.4 mg/dL (0.2-1.2); Calc. Creatinine Clearance 29 mL/min (70-130); Calcium 9.3 mg/dL (7.8-10.44); Carbon Dioxide 21 mmol/L (23-31); Chloride 108 mmol/L (98-107); Estimated GFR 41; Globulin 2.5 g/dL (2.4-3.5); Glucose 101 mg/dL (83-110); Protein, Total 6.4 g/dL (5.8-8.1); Sodium 139 mmol/L (136-145)
[2022-09-26] MEDS: Furosemide 20 MG/2 ML VIAL SLOW IVP SCH ×2 (06:37→14:00)
[2022-09-26 07:18] LABS: #Basophils 0.1 10x3/uL (0.0-0.2); #Eosinphils 0.2 10x3/uL (0.0-0.5); #Monocytes 0.5 10x3/uL (0.0-1.1); #Neutrophils 4.2 10x3/uL (1.5-8.4); %Basophils 1.2 % (0.0-2.0); %Lymphocytes 17.4 % (18.0-47.0); %Monocytes 8.1 % (0.0-10.0); Hemoglobin 12.1 g/dL (12.0-15.5); Mean Corpuscular HGB CONC 32.9 g/dL (32.0-36.0); Mean Corpuscular Hemoglobin 29.8 pg (27.0-33.0); Mean Corpuscular Volume 90.6 fl (81.6-98.3); Mean Platelet Volume 10.7 fl (7.4-10.4); Platelet Count 279 10x3/uL (150-450); RBC Distribution Width 13.4 % (11.5-14.5); Red Blood Cell (RBC) Count 4.06 10x6/uL (3.90-5.03)
[2022-09-26] MEDS ORDERED: Pramipexole Di-HCl 1 MG TAB PO SCH ×2 (09:00→17:00)
[2022-09-26] MEDS: Famotidine 20 MG TAB PO SCH (13:22)
[2022-09-26] MEDS: Folic Acid 1 MG TAB PO SCH (13:22)
[2022-09-26] MEDS: Aspirin 81 mg Enteric Coated Tablet PO SCH (13:23)
[2022-09-26] MEDS: Clopidogrel Bisulfate 75 MG TAB PO SCH (13:23)
[2022-09-26] MEDS: Spironolactone 25 MG TAB PO SCH (13:23)
[2022-09-26] MEDS: Amlodipine 5 MG TAB PO SCH (13:23)
[2022-09-26] MEDS ORDERED: Furosemide 40 MG/4 ML VIAL ONE (17:27)
[2022-09-26] MEDS ORDERED: Furosemide 20 MG/2 ML VIAL SLOW IVP SCH (17:45)
[2022-09-26] MEDS: Simvastatin 10 MG TAB PO SCH (23:36)
[2022-09-26] MEDS: QUEtiapine 25 MG TAB PO SCH (23:36)
[2022-09-27] MEDS: Clopidogrel Bisulfate 75 MG TAB PO SCH (08:58)
[2022-09-27] MEDS: Famotidine 20 MG TAB PO SCH (08:58)
[2022-09-27] MEDS: Aspirin 81 mg Enteric Coated Tablet PO SCH (08:58)
[2022-09-27] MEDS: Folic Acid 1 MG TAB PO SCH (08:59)
[2022-09-27] MEDS: Amlodipine 5 MG TAB PO SCH (08:59)
[2022-09-27] MEDS: Spironolactone 25 MG TAB PO SCH (08:59)
[2022-09-27] MEDS: Pramipexole Di-HCl 1 MG TAB PO SCH ×2 (09:03→09:10)
[2022-09-27 12:51] LABS: Troponin I 0.021 ng/mL (< 0.028)
[2022-09-27 15:25] LABS: Troponin I 0.031 ng/mL (< 0.028)
[2022-09-27 17:05] VITALS: BP 117/55; TEMP 98.2
== END 2022-09-27 16:17 | disposition home or self-care (01) ==
LOC: SUATTDRO 09:37 → CSHERS 09:37 → CSHTELE 14:16 → INTOOBSV 14:16
PROVIDERS: ADMIT Internal Medicine; ATTEND Internal Medicine
DX: I13.0 Hypertensive heart and chronic kidney disease with heart failure and stage 1 through stage 4 chronic kidney disease, or unspecified chronic kidney disease (principal); I50.33 Acute on chronic diastolic (congestive) heart failure; N18.30 Chronic kidney disease, stage 3 unspecified; N17.9 Acute kidney failure, unspecified; E78.5 Hyperlipidemia, unspecified; I73.9 Peripheral vascular disease, unspecified; I25.10 Atherosclerotic heart disease of native coronary artery without angina pectoris; F03.90 Unspecified dementia, unspecified severity, without behavioral disturbance, psychotic disturbance, mood disturbance, and anxiety; D72.829 Elevated white blood cell count, unspecified; Z88.0 Allergy status to penicillin; Z79.82 Long term (current) use of aspirin; Z79.899 Other long term (current) drug therapy; Z95.5 Presence of coronary angioplasty implant and graft
CPT/HCPCS: 71045; 80053 ×2; 82553; 83880 ×2; 84484 ×4; 85025 ×2; 93005 ×2; 94760 ×3; 96375; 96376; 99285; G0378 ×4; 36415; 93010; 93306; J1940

== ENCOUNTER 2022-10-06 15:45 | Emergency (ER) | payer MEDICARE ==
[2022-10-06 16:56] LABS: #Basophils 0.1 10x3/uL (0.0-0.2); #Eosinphils 0.1 10x3/uL (0.0-0.5); #Monocytes 0.5 10x3/uL (0.0-1.1); #Neutrophils 6.5 10x3/uL (1.5-8.4); %Basophils 0.8 % (0.0-2.0); %Monocytes 6.5 % (0.0-10.0); %Neutrophils 78.3 % (40.0-75.0); Hemoglobin 12.8 g/dL (12.0-15.5); Mean Corpuscular HGB CONC 32.6 g/dL (32.0-36.0); Mean Corpuscular Hemoglobin 29.6 pg (27.0-33.0); Mean Platelet Volume 10.4 fl (7.4-10.4); Platelet Count 277 10x3/uL (150-450); RBC Distribution Width 13.3 % (11.5-14.5); Red Blood Cell (RBC) Count 4.32 10x6/uL (3.90-5.03); White Blood Cell (WBC) Count 8.3 10x3/uL (3.5-10.5)
[2022-10-06 17:08] LABS: Anion Gap 16 mmol/L (10-20); BUN (Urea Nitrogen) 15 mg/dL (9.8-20.1); Calc. Creatinine Clearance 0 mL/min (70-130); Calcium 8.8 mg/dL (7.8-10.44); Carbon Dioxide 18 mmol/L (23-31); Chloride 107 mmol/L (98-107); Estimated GFR 46; Glucose 95 mg/dL (83-110); Potassium 4.1 mmol/L (3.5-5.1); Sodium 137 mmol/L (136-145)
[2022-10-06] MEDS ORDERED: Acetaminophen 500 MG TAB ONE (17:43)
[2022-10-06] MEDS ORDERED: Ondansetron PF 4 MG/2 ML Vial ONE (17:43)
[2022-10-06 19:35] LABS: Troponin I 0.013 ng/mL (< 0.028)
== END 2022-10-06 20:33 | disposition home or self-care (01) ==
LOC: CSHERS 15:45
DX: R07.2 Precordial pain (principal); I11.0 Hypertensive heart disease with heart failure; I50.9 Heart failure, unspecified; I25.10 Atherosclerotic heart disease of native coronary artery without angina pectoris
CPT/HCPCS: 36415; 71045; 80048; 84484; 85025; 93005; 96374; J2405

== ENCOUNTER 2022-10-13 13:43 | Inpatient (IN) | payer MEDICARE ==
[2022-10-13 14:45] LABS: #Basophils 0.1 10x3/uL (0.0-0.2); #Eosinphils 0.2 10x3/uL (0.0-0.5); #Monocytes 0.8 10x3/uL (0.0-1.1); #Neutrophils 10.9 10x3/uL (1.5-8.4); %Basophils 0.6 % (0.0-2.0); %Eosinophils 1.8 % (0.0-6.0); %Lymphocytes 5.4 % (18.0-47.0); %Neutrophils 85.7 % (40.0-75.0); Hemoglobin 12.8 g/dL (12.0-15.5); Mean Corpuscular HGB CONC 32.1 g/dL (32.0-36.0); Mean Corpuscular Hemoglobin 29.9 pg (27.0-33.0); Mean Corpuscular Volume 93.2 fl (81.6-98.3); Mean Platelet Volume 10.6 fl (7.4-10.4); Platelet Count 239 10x3/uL (150-450); RBC Distribution Width 13.6 % (11.5-14.5); Red Blood Cell (RBC) Count 4.28 10x6/uL (3.90-5.03); White Blood Cell (WBC) Count 12.7 10x3/uL (3.5-10.5)
[2022-10-13 14:56] LABS: Bilirubin Neg (Negative); Blood, Urine Negative (Negative); Clarity Clear (Clear); Glucose, Urine (Dipstick) Normal (Negative); Ketone, Urine Negative (Negative); Leukocyte 25 (Negative); Nitrite Negative (Negative); Protein, Urine (Dipstick) 15 mg/dl (Neg-Trace); Specific Gravity, Urine 1.015 (1.005-1.030); Urobilinogen Normal mg/dL (Less than 2)
[2022-10-13 14:58] LABS: ALT (SGPT) 16 U/L (8-55); AST (SGOT) 30 U/L (5-34); Albumin 3.7 g/dL (3.4-4.8); Alkaline Phosphatase 84 U/L (40-110); Anion Gap 16 mmol/L (10-20); BUN (Urea Nitrogen) 22 mg/dL (9.8-20.1); Bilirubin, Total 0.5 mg/dL (0.2-1.2); CK (CPK) 445 U/L (29-168); Calc. Creatinine Clearance 0 mL/min (70-130); Calcium 8.5 mg/dL (7.8-10.44); Carbon Dioxide 23 mmol/L (23-31); Chloride 104 mmol/L (98-107); Estimated GFR 37; Glucose 101 mg/dL (83-110); Lipase 7 U/L (8-78); Potassium 5.9 mmol/L (3.5-5.1); Protein, Total 5.7 g/dL (5.8-8.1); Sodium 137 mmol/L (136-145)
[2022-10-13 15:04] LABS: Bacteria/HPF None Seen HPF (None Seen); RBC/HPF 0-3 HPF (0-3); Squamous Epithelial 0-3 HPF (0-3); WBC/HPF 0-3 HPF (0-3)
[2022-10-13 15:23] LABS: CKMB 5.7 ng/mL (0-6.6)
[2022-10-13 16:24] LABS: ALT (SGPT) 16 U/L (8-55); AST (SGOT) 34 U/L (5-34); Albumin 3.7 g/dL (3.4-4.8); Alkaline Phosphatase 84 U/L (40-110); Anion Gap 12 mmol/L (10-20); BUN (Urea Nitrogen) 21 mg/dL (9.8-20.1); Bilirubin, Total 0.5 mg/dL (0.2-1.2); Calc. Creatinine Clearance 0 mL/min (70-130); Calcium 8.7 mg/dL (7.8-10.44); Carbon Dioxide 26 mmol/L (23-31); Chloride 104 mmol/L (98-107); Estimated GFR 42; Globulin 2.4 g/dL (2.4-3.5); Glucose 102 mg/dL (83-110); Potassium 4.9 mmol/L (3.5-5.1); Protein, Total 6.1 g/dL (5.8-8.1); Sodium 137 mmol/L (136-145)
[2022-10-13] MEDS ORDERED: Senokot S 8.6-50 MG TAB PO PRN (17:24)
[2022-10-13] MEDS ORDERED: Acetaminophen 325 MG TAB PO PRN (17:24)
[2022-10-14 04:52] LABS: #Basophils 0.1 10x3/uL (0.0-0.2); #Eosinphils 0.2 10x3/uL (0.0-0.5); #Monocytes 0.5 10x3/uL (0.0-1.1); #Neutrophils 5.1 10x3/uL (1.5-8.4); %Basophils 0.7 % (0.0-2.0); %Eosinophils 3.4 % (0.0-6.0); %Lymphocytes 13.2 % (18.0-47.0); %Monocytes 6.7 % (0.0-10.0); %Neutrophils 75.9 % (40.0-75.0); Hemoglobin 12.6 g/dL (12.0-15.5); Mean Corpuscular HGB CONC 33.1 g/dL (32.0-36.0); Mean Corpuscular Volume 90.7 fl (81.6-98.3); Mean Platelet Volume 10.2 fl (7.4-10.4); Platelet Count 235 10x3/uL (150-450); RBC Distribution Width 13.5 % (11.5-14.5); White Blood Cell (WBC) Count 6.7 10x3/uL (3.5-10.5)
[2022-10-14 05:06] LABS: ALT (SGPT) 15 U/L (8-55); AST (SGOT) 23 U/L (5-34); Albumin 3.7 g/dL (3.4-4.8); Alkaline Phosphatase 83 U/L (40-110); Anion Gap 13 mmol/L (10-20); BUN (Urea Nitrogen) 17 mg/dL (9.8-20.1); Bilirubin, Total 0.5 mg/dL (0.2-1.2); Calc. Creatinine Clearance 0 mL/min (70-130); Calcium 8.9 mg/dL (7.8-10.44); Carbon Dioxide 25 mmol/L (23-31); Chloride 104 mmol/L (98-107); Estimated GFR 48; Globulin 2.4 g/dL (2.4-3.5); Glucose 97 mg/dL (83-110); Potassium 4.5 mmol/L (3.5-5.1); Protein, Total 6.1 g/dL (5.8-8.1); Sodium 137 mmol/L (136-145)
[2022-10-14 05:31] LABS: Thyroid Stimulating Hormone 0.434 uIU/mL (0.35-4.94)
[2022-10-14] MEDS ORDERED: Amlodipine 5 MG TAB PO SCH (09:00)
[2022-10-14] MEDS: Aspirin 81 mg Enteric Coated Tablet PO SCH (09:55)
[2022-10-14] MEDS: Famotidine 20 MG TAB PO SCH (09:55)
[2022-10-14] MEDS: Clopidogrel Bisulfate 75 MG TAB PO SCH (09:56)
[2022-10-14] MEDS: Folic Acid 1 MG TAB PO SCH (09:56)
[2022-10-14] MEDS: Magnesium Oxide 400 MG TAB PO SCH (09:56)
[2022-10-14 10:11] VITALS: BMI 24.0
[2022-10-14] MEDS: Simvastatin 10 MG TAB PO SCH ×2 (11:09→20:43)
[2022-10-14] MEDS: Colestipol 1 GM TAB PO SCH (11:09)
[2022-10-14] MEDS ORDERED: Haloperidol 1 MG TAB PO SCH ×2 (17:30→21:00)
[2022-10-14] MEDS: ALPRAZolam 0.25 MG TAB PO PRN (22:47)
[2022-10-15] MEDS ORDERED: Senokot S 8.6-50 MG TAB PO PRN (07:29)
[2022-10-15] MEDS: Losartan 25 MG TAB PO SCH (09:00)
[2022-10-15] MEDS: Folic Acid 1 MG TAB PO SCH (09:00)
[2022-10-15] MEDS: Aspirin 81 mg Enteric Coated Tablet PO SCH (09:01)
[2022-10-15] MEDS: Colestipol 1 GM TAB PO SCH (09:01)
[2022-10-15] MEDS: Famotidine 20 MG TAB PO SCH (09:01)
[2022-10-15] MEDS: Clopidogrel Bisulfate 75 MG TAB PO SCH (09:01)
[2022-10-15] MEDS: Magnesium Oxide 400 MG TAB PO SCH (09:01)
[2022-10-15] MEDS: Simvastatin 10 MG TAB PO SCH (20:24)
[2022-10-15] MEDS: ALPRAZolam 0.25 MG TAB PO PRN (20:36)
[2022-10-16] MEDS: Losartan 25 MG TAB PO SCH (10:09)
[2022-10-16] MEDS: Aspirin 81 mg Enteric Coated Tablet PO SCH (10:09)
[2022-10-16] MEDS: Folic Acid 1 MG TAB PO SCH (10:09)
[2022-10-16] MEDS: Magnesium Oxide 400 MG TAB PO SCH (10:09)
[2022-10-16] MEDS: Colestipol 1 GM TAB PO SCH (10:09)
[2022-10-16] MEDS: Clopidogrel Bisulfate 75 MG TAB PO SCH (10:09)
[2022-10-16] MEDS: Famotidine 20 MG TAB PO SCH (10:10)
[2022-10-16] MEDS ORDERED: Calcium Carbonate 500 MG ChewTAB PO PRN (16:41)
[2022-10-16] MEDS ORDERED: Simethicone Chewable 80 MG TAB PO PRN (16:41)
[2022-10-16] MEDS: Simvastatin 10 MG TAB PO SCH (21:25)
[2022-10-17 05:29] LABS: #Basophils 0.1 10x3/uL (0.0-0.2); #Eosinphils 0.2 10x3/uL (0.0-0.5); #Monocytes 0.4 10x3/uL (0.0-1.1); #Neutrophils 3.5 10x3/uL (1.5-8.4); %Basophils 1.2 % (0.0-2.0); %Eosinophils 4.1 % (0.0-6.0); %Lymphocytes 15.2 % (18.0-47.0); %Monocytes 8.4 % (0.0-10.0); %Neutrophils 70.7 % (40.0-75.0); Hemoglobin 12.3 g/dL (12.0-15.5); Mean Corpuscular HGB CONC 32.9 g/dL (32.0-36.0); Mean Corpuscular Hemoglobin 29.5 pg (27.0-33.0); Mean Corpuscular Volume 89.7 fl (81.6-98.3); Mean Platelet Volume 10.8 fl (7.4-10.4); Platelet Count 269 10x3/uL (150-450); RBC Distribution Width 13.6 % (11.5-14.5); Red Blood Cell (RBC) Count 4.17 10x6/uL (3.90-5.03); White Blood Cell (WBC) Count 4.9 10x3/uL (3.5-10.5)
[2022-10-17 05:48] LABS: Anion Gap 15 mmol/L (10-20); BUN (Urea Nitrogen) 25 mg/dL (9.8-20.1); Calc. Creatinine Clearance 30 mL/min (70-130); Calcium 9.2 mg/dL (7.8-10.44); Carbon Dioxide 21 mmol/L (23-31); Chloride 106 mmol/L (98-107); Estimated GFR 43; Glucose 96 mg/dL (83-110); Potassium 4.3 mmol/L (3.5-5.1); Sodium 138 mmol/L (136-145)
[2022-10-17] MEDS: Magnesium Oxide 400 MG TAB PO SCH (08:48)
[2022-10-17] MEDS: Aspirin 81 mg Enteric Coated Tablet PO SCH (08:48)
[2022-10-17] MEDS: Colestipol 1 GM TAB PO SCH (08:48)
[2022-10-17] MEDS: Folic Acid 1 MG TAB PO SCH (08:48)
[2022-10-17] MEDS: Losartan 25 MG TAB PO SCH (08:49)
[2022-10-17] MEDS: Famotidine 20 MG TAB PO SCH (08:49)
[2022-10-17] MEDS: Clopidogrel Bisulfate 75 MG TAB PO SCH (08:49)
[2022-10-17] MEDS: Simvastatin 10 MG TAB PO SCH (20:09)
[2022-10-18] MEDS: Colestipol 1 GM TAB PO SCH (09:54)
[2022-10-18] MEDS: Folic Acid 1 MG TAB PO SCH (09:55)
[2022-10-18] MEDS: Famotidine 20 MG TAB PO SCH (09:55)
[2022-10-18] MEDS: Losartan 25 MG TAB PO SCH (09:55)
[2022-10-18] MEDS: Aspirin 81 mg Enteric Coated Tablet PO SCH (09:55)
[2022-10-18] MEDS: Magnesium Oxide 400 MG TAB PO SCH (09:55)
[2022-10-18] MEDS: Clopidogrel Bisulfate 75 MG TAB PO SCH (09:55)
[2022-10-18 10:27] VITALS: BP 160/69; TEMP 98.3
== END 2022-10-18 11:46 | DRG 884 ==
LOC: CSHERS 13:43 → SUATTDRO 13:43 → CSHERHOLD 14:00 → CSHTELE 10-14 07:56 → CSHERS 10-14 07:56
PROVIDERS: ADMIT Family Medicine; ATTEND Internal Medicine
DX: F03.90 Unspecified dementia, unspecified severity, without behavioral disturbance, psychotic disturbance, mood disturbance, and anxiety (principal); G93.49 Other encephalopathy; I13.0 Hypertensive heart and chronic kidney disease with heart failure and stage 1 through stage 4 chronic kidney disease, or unspecified chronic kidney disease; N17.9 Acute kidney failure, unspecified; I50.32 Chronic diastolic (congestive) heart failure; Z79.899 Other long term (current) drug therapy; I25.10 Atherosclerotic heart disease of native coronary artery without angina pectoris; G89.29 Other chronic pain; G25.81 Restless legs syndrome; M19.90 Unspecified osteoarthritis, unspecified site; Z96.653 Presence of artificial knee joint, bilateral; R62.7 Adult failure to thrive; F41.9 Anxiety disorder, unspecified; N18.9 Chronic kidney disease, unspecified; Z88.0 Allergy status to penicillin; Z79.82 Long term (current) use of aspirin; Z90.710 Acquired absence of both cervix and uterus; Z95.5 Presence of coronary angioplasty implant and graft; Z68.24 Body mass index [BMI] 24.0-24.9, adult; E86.0 Dehydration
CPT/HCPCS: 36415; 70450; 70551; 71045; 80048; 80053; 81003; 81015; 82140; 82550; 82553; 82607; 83690; 83735; 83880; 84100; 84425; 84443; 84484; 85025; 93005; 93010; 94760; 96360; 96361; J1650

== ENCOUNTER 2022-12-03 07:31 | Inpatient (IN) | payer MEDICARE ==
[2022-12-03 08:20] LABS: #Basophils 0.1 10x3/uL (0.0-0.2); #Eosinphils 0.1 10x3/uL (0.0-0.5); #Monocytes 0.6 10x3/uL (0.0-1.1); %Basophils 1.3 % (0.0-2.0); %Lymphocytes 15.3 % (18.0-47.0); %Monocytes 8.2 % (0.0-10.0); %Neutrophils 72.9 % (40.0-75.0); Hemoglobin 12.3 g/dL (12.0-15.5); Mean Corpuscular HGB CONC 33.2 g/dL (32.0-36.0); Mean Corpuscular Hemoglobin 29.5 pg (27.0-33.0); Mean Platelet Volume 10.8 fl (7.4-10.4); Platelet Count 304 10x3/uL (150-450); RBC Distribution Width 13.7 % (11.5-14.5); Red Blood Cell (RBC) Count 4.17 10x6/uL (3.90-5.03); White Blood Cell (WBC) Count 6.9 10x3/uL (3.5-10.5)
[2022-12-03 08:30] LABS: ALT (SGPT) 14 U/L (8-55); AST (SGOT) 17 U/L (5-34); Albumin 3.9 g/dL (3.4-4.8); Alkaline Phosphatase 74 U/L (40-110); Anion Gap 16 mmol/L (10-20); BUN (Urea Nitrogen) 18 mg/dL (9.8-20.1); Bilirubin, Total 0.6 mg/dL (0.2-1.2); Calc. Creatinine Clearance 0 mL/min (70-130); Calcium 9.3 mg/dL (7.8-10.44); Carbon Dioxide 19 mmol/L (23-31); Chloride 108 mmol/L (98-107); Estimated GFR 43; Globulin 2.6 g/dL (2.4-3.5); Glucose 100 mg/dL (83-110); Lipase 10 U/L (8-78); Potassium 3.9 mmol/L (3.5-5.1); Protein, Total 6.5 g/dL (5.8-8.1); Sodium 139 mmol/L (136-145)
[2022-12-03] MEDS ORDERED: fentaNYL 50 mcg/mL 1 mL Vial ONE (09:18)
[2022-12-03 09:44] LABS: Bilirubin Neg (Negative); Blood, Urine Negative (Negative); Clarity Clear (Clear); Glucose, Urine (Dipstick) Normal (Negative); Ketone, Urine Negative (Negative); Leukocyte Negative (Negative); Nitrite Negative (Negative); Protein, Urine (Dipstick) 15 mg/dl (Neg-Trace); Specific Gravity, Urine 1.005 (1.005-1.030); Urobilinogen Normal mg/dL (Less than 2)
[2022-12-03 10:00] LABS: Bacteria/HPF Rare-Few HPF (None Seen); CAUTI Indications for Culture Alt mental st,lethar; RBC/HPF 0-3 HPF (0-3); Squamous Epithelial 0-3 HPF (0-3); WBC/HPF 0-3 HPF (0-3)
[2022-12-03 10:01] LABS: Urine Culture Reflex No No
[2022-12-03] MEDS ORDERED: Lorazepam 2 MG/ML VIAL ONE (10:08)
[2022-12-03] MEDS: Heparin 5,000 UNITS/ML VIAL SC SCH ×2 (17:19→22:01)
[2022-12-03] MEDS: Carvedilol 6.25 MG TAB PO SCH (17:20)
[2022-12-03] MEDS: Atorvastatin Calcium 40 MG TAB PO SCH (20:50)
[2022-12-04 05:08] LABS: #Basophils 0.1 10x3/uL (0.0-0.2); #Eosinphils 0.2 10x3/uL (0.0-0.5); #Monocytes 0.5 10x3/uL (0.0-1.1); #Neutrophils 5.2 10x3/uL (1.5-8.4); %Basophils 1.2 % (0.0-2.0); %Eosinophils 2.5 % (0.0-6.0); %Lymphocytes 11.2 % (18.0-47.0); %Monocytes 7.7 % (0.0-10.0); %Neutrophils 77.3 % (40.0-75.0); Hemoglobin 12.7 g/dL (12.0-15.5); Mean Corpuscular HGB CONC 33.1 g/dL (32.0-36.0); Mean Corpuscular Hemoglobin 29.5 pg (27.0-33.0); Mean Corpuscular Volume 89.3 fl (81.6-98.3); Platelet Count 292 10x3/uL (150-450); RBC Distribution Width 13.6 % (11.5-14.5); White Blood Cell (WBC) Count 6.8 10x3/uL (3.5-10.5)
[2022-12-04 05:10] LABS: Anion Gap 16 mmol/L (10-20); BUN (Urea Nitrogen) 19 mg/dL (9.8-20.1); Calc. Creatinine Clearance 50 mL/min (70-130); Calcium 9.6 mg/dL (7.8-10.44); Carbon Dioxide 20 mmol/L (23-31); Chloride 105 mmol/L (98-107); Estimated GFR 51; Glucose 102 mg/dL (83-110); Potassium 3.9 mmol/L (3.5-5.1); Sodium 137 mmol/L (136-145)
[2022-12-04 08:54] LABS: Troponin I 0.029 ng/mL (< 0.028)
[2022-12-04] MEDS ORDERED: Amlodipine 5 MG TAB PO SCH (09:00)
[2022-12-04] MEDS: Acetaminophen 325 MG TAB PO PRN ×2 (09:00→22:50)
[2022-12-04] MEDS: Carvedilol 6.25 MG TAB PO SCH (09:01)
[2022-12-04] MEDS: Aspirin 81 mg Enteric Coated Tablet PO SCH (09:01)
[2022-12-04] MEDS: Ondansetron PF 4 MG/2 ML Vial IVP PRN (09:03)
[2022-12-04] MEDS: Heparin 5,000 UNITS/ML VIAL SC SCH ×3 (09:07→21:19)
[2022-12-04] MEDS: Nitroglycerin 0.4 MG TAB (25 Tab Bottle) SL PRN ×2 (09:50→09:55)
[2022-12-04] MEDS ORDERED: traMADol HCl 50 MG TAB PO PRN (10:56)
[2022-12-04] MEDS ORDERED: Potassium Chloride 20 MEQ TAB PO SCH (11:00)
[2022-12-04] MEDS ORDERED: Carvedilol 3.125 MG TAB PO SCH (17:00)
[2022-12-04] MEDS: Atorvastatin Calcium 40 MG TAB PO SCH (21:19)
[2022-12-05] MEDS ORDERED: Carvedilol 3.125 MG TAB PO SCH (04:45)
[2022-12-05 05:48] LABS: Anion Gap 15 mmol/L (10-20); BUN (Urea Nitrogen) 27 mg/dL (9.8-20.1); Calc. Creatinine Clearance 39 mL/min (70-130); Calcium 9.5 mg/dL (7.8-10.44); Carbon Dioxide 22 mmol/L (23-31); Chloride 102 mmol/L (98-107); Estimated GFR 38; Glucose 99 mg/dL (83-110); Potassium 4.1 mmol/L (3.5-5.1); Sodium 135 mmol/L (136-145)
[2022-12-05] MEDS: Aspirin 81 mg Enteric Coated Tablet PO SCH (05:57)
[2022-12-05] MEDS ORDERED: Lidocaine 1% (PF) 30 ML VIAL ONE (06:51)
[2022-12-05] MEDS ORDERED: Heparin 10,000 UNITS/ 10 ML VIAL ONE (06:51)
[2022-12-05] MEDS ORDERED: Nitroglycerin 50 MG/250 ML BOT 250 ML ONE (06:53)
[2022-12-05] MEDS ORDERED: Iopamidol 300 61% 100 ML VIAL FS ONE (09:00)
[2022-12-05] MEDS ORDERED: Midazolam HCl 2 mg/2 ml Vial ONE (09:51)
[2022-12-05] MEDS ORDERED: fentaNYL 50 mcg/mL 1 mL Vial ONE (09:51)
[2022-12-05] MEDS ORDERED: Protamine Sulfate 50 MG/5 ML VIAL ONE (10:32)
[2022-12-05] MEDS: traMADol HCl 50 MG TAB PO PRN (11:16)
[2022-12-05] MEDS: Morphine 2 MG/ML VIAL SLOW IVP PRN (12:34)
[2022-12-05] MEDS: Sodium Chloride 0.9% 1,000 ML IV SCH (15:20)
[2022-12-05] MEDS: Heparin 5,000 UNITS/ML VIAL SC SCH ×2 (15:31→21:57)
[2022-12-05] MEDS: Carvedilol 3.125 MG TAB PO SCH (17:26)
[2022-12-05] MEDS: Atorvastatin Calcium 40 MG TAB PO SCH (21:57)
[2022-12-06] MEDS: Sodium Chloride 0.9% 1,000 ML IV SCH (06:28)
[2022-12-06] MEDS: Aspirin 81 mg Enteric Coated Tablet PO SCH (09:05)
[2022-12-06] MEDS: Heparin 5,000 UNITS/ML VIAL SC SCH ×3 (09:05→22:55)
[2022-12-06] MEDS: Carvedilol 3.125 MG TAB PO SCH (09:05)
[2022-12-06] MEDS ORDERED: Lactated Ringer's 1,000 ML IV SCH (12:30)
[2022-12-06] MEDS ORDERED: Amlodipine 5 MG TAB PO SCH (13:00)
[2022-12-06] MEDS: Carvedilol 6.25 MG TAB PO SCH (17:42)
[2022-12-06 19:03] LABS: Actual Bicarbonate (HCO3a) 21.8 mEq/L (22-28); Base Excess (BEa) 0.1 mEq/L (-2.0 to +3.0); CO2 Tension 27.2 mmHg (35.0-45.0); Calcium, Ionized (arterial) 1.18 mmol/L (1.12-1.30); Carboxyhemoglobin (COHb) 0.1 gm% (0.0-3.0); Hematocrit-ABG 36 % (36.0-47.0); Hemoglobin (Hb) 12.2 g/dL (12.0-16.0); O2 Tension (PaO2), arterial 94.9 mmHg (> 60.0); Potassium - ABG Lab 3.94 mmol/L (3.70-5.30); Puncture Site RRA; pH, Arterial 7.522 (7.35-7.45)
[2022-12-06 19:07] LABS: #Eosinphils 0.1 10x3/uL (0.0-0.5); #Monocytes 0.5 10x3/uL (0.0-1.1); #Neutrophils 4.4 10x3/uL (1.5-8.4); %Basophils 0.7 % (0.0-2.0); %Eosinophils 1.2 % (0.0-6.0); %Lymphocytes 13.9 % (18.0-47.0); %Monocytes 8.6 % (0.0-10.0); %Neutrophils 75.3 % (40.0-75.0); Hemoglobin 11.2 g/dL (12.0-15.5); Mean Corpuscular HGB CONC 32.5 g/dL (32.0-36.0); Mean Corpuscular Hemoglobin 29.2 pg (27.0-33.0); Mean Corpuscular Volume 90.1 fl (81.6-98.3); Mean Platelet Volume 10.4 fl (7.4-10.4); Platelet Count 261 10x3/uL (150-450); RBC Distribution Width 13.3 % (11.5-14.5); Red Blood Cell (RBC) Count 3.83 10x6/uL (3.90-5.03); White Blood Cell (WBC) Count 5.8 10x3/uL (3.5-10.5)
[2022-12-06 19:30] LABS: ALT (SGPT) 15 U/L (8-55); AST (SGOT) 21 U/L (5-34); Albumin 3.6 g/dL (3.4-4.8); Alkaline Phosphatase 76 U/L (40-110); Anion Gap 13 mmol/L (10-20); BUN (Urea Nitrogen) 23 mg/dL (9.8-20.1); Bilirubin, Total 0.5 mg/dL (0.2-1.2); Calc. Creatinine Clearance 45 mL/min (70-130); Carbon Dioxide 21 mmol/L (23-31); Chloride 104 mmol/L (98-107); Estimated GFR 44; Globulin 2.3 g/dL (2.4-3.5); Glucose 113 mg/dL (83-110); Potassium 3.8 mmol/L (3.5-5.1); Protein, Total 5.9 g/dL (5.8-8.1); Sodium 134 mmol/L (136-145)
[2022-12-06 19:36] LABS: Troponin I 0.065 ng/mL (< 0.028)
[2022-12-06] MEDS ORDERED: HYDROcodone/Acetaminophen 7.5/325 mg Tablet PO SCH (21:00)
[2022-12-06] MEDS: Atorvastatin Calcium 40 MG TAB PO SCH (22:46)
[2022-12-06 23:29] LABS: Troponin I 0.041 ng/mL (< 0.028)
[2022-12-07 05:32] LABS: #Basophils 0.1 10x3/uL (0.0-0.2); #Eosinphils 0.2 10x3/uL (0.0-0.5); #Monocytes 0.6 10x3/uL (0.0-1.1); #Neutrophils 3.8 10x3/uL (1.5-8.4); %Eosinophils 3.1 % (0.0-6.0); %Lymphocytes 19.4 % (18.0-47.0); %Monocytes 10.6 % (0.0-10.0); %Neutrophils 65.6 % (40.0-75.0); Hemoglobin 11.9 g/dL (12.0-15.5); Mean Corpuscular HGB CONC 32.4 g/dL (32.0-36.0); Mean Corpuscular Hemoglobin 29.2 pg (27.0-33.0); Mean Platelet Volume 11.2 fl (7.4-10.4); Platelet Count 265 10x3/uL (150-450); RBC Distribution Width 13.2 % (11.5-14.5); Red Blood Cell (RBC) Count 4.08 10x6/uL (3.90-5.03); White Blood Cell (WBC) Count 5.7 10x3/uL (3.5-10.5)
[2022-12-07] MEDS: traMADol HCl 50 MG TAB PO PRN (05:39)
[2022-12-07 05:44] LABS: ALT (SGPT) 15 U/L (8-55); AST (SGOT) 21 U/L (5-34); Albumin 3.8 g/dL (3.4-4.8); Alkaline Phosphatase 79 U/L (40-110); Anion Gap 13 mmol/L (10-20); BUN (Urea Nitrogen) 20 mg/dL (9.8-20.1); Bilirubin, Total 0.5 mg/dL (0.2-1.2); Calc. Creatinine Clearance 48 mL/min (70-130); Calcium 10.2 mg/dL (7.8-10.44); Carbon Dioxide 20 mmol/L (23-31); Chloride 105 mmol/L (98-107); Estimated GFR 48; Globulin 2.5 g/dL (2.4-3.5); Glucose 92 mg/dL (83-110); Potassium 3.9 mmol/L (3.5-5.1); Protein, Total 6.3 g/dL (5.8-8.1); Sodium 134 mmol/L (136-145)
[2022-12-07] MEDS: Nitroglycerin 0.4 MG TAB (25 Tab Bottle) SL PRN ×2 (05:46→06:36)
[2022-12-07] MEDS ORDERED: Nitroglycerin 50 MG/250 ML BOT 250 ML ONE (06:29)
[2022-12-07] MEDS ORDERED: Lidocaine 1% (PF) 30 ML VIAL ONE (06:29)
[2022-12-07] MEDS ORDERED: Heparin 10,000 UNITS/ 10 ML VIAL ONE (06:30)
[2022-12-07] MEDS ORDERED: Adenosine 6 MG/2 ML VIAL ONE (06:30)
[2022-12-07] MEDS: Morphine 2 MG/ML VIAL SLOW IVP PRN ×2 (07:09→12:36)
[2022-12-07] MEDS ORDERED: Fentanyl 250 MCG/5 ML VIAL ONE (10:45)
[2022-12-07] MEDS ORDERED: fentaNYL 50 mcg/mL 1 mL Vial ONE (10:46)
[2022-12-07] MEDS ORDERED: Iopamidol 300 61% 100 ML VIAL FS ONE (10:56)
[2022-12-07] MEDS: Carvedilol 6.25 MG TAB PO SCH ×2 (12:41→16:59)
[2022-12-07] MEDS ORDERED: Sodium Chloride 0.9% 200 ML IV PRN (12:44)
[2022-12-07] MEDS ORDERED: Nitroglycerin 0.4 MG TAB (25 Tab Bottle) SL PRN (12:44)
[2022-12-07] MEDS: Acetaminophen 325 MG TAB PO PRN (12:44)
[2022-12-07] MEDS ORDERED: Acetaminophen/Codeine 30-300mg Tablet PO PRN ×2 (12:44)
[2022-12-07] MEDS: Aspirin 81 mg Enteric Coated Tablet PO SCH (12:45)
[2022-12-07] MEDS: Ondansetron PF 4 MG/2 ML Vial IVP PRN (12:45)
[2022-12-07] MEDS ORDERED: Sodium Chloride 0.9% 1,000 ML IV SCH (12:45)
[2022-12-07] MEDS: Amlodipine 5 MG TAB PO SCH (12:45)
[2022-12-07] MEDS ORDERED: Clopidogrel Bisulfate 75 MG TAB PO SCH (14:00)
[2022-12-07] MEDS: Heparin 5,000 UNITS/ML VIAL SC SCH ×2 (15:52→20:04)
[2022-12-07] MEDS: HYDROcodone/Acetaminophen 5/325 mg Tablet PO PRN (17:00)
[2022-12-07] MEDS: Atorvastatin Calcium 40 MG TAB PO SCH (20:05)
[2022-12-08] MEDS: HYDROcodone/Acetaminophen 5/325 mg Tablet PO PRN (00:36)
[2022-12-08] MEDS: Morphine 2 MG/ML VIAL SLOW IVP PRN (03:00)
[2022-12-08 05:48] LABS: #Basophils 0.1 10x3/uL (0.0-0.2); #Eosinphils 0.1 10x3/uL (0.0-0.5); #Monocytes 0.5 10x3/uL (0.0-1.1); #Neutrophils 3.8 10x3/uL (1.5-8.4); %Eosinophils 2.7 % (0.0-6.0); %Lymphocytes 13.3 % (18.0-47.0); %Monocytes 9.1 % (0.0-10.0); %Neutrophils 73.5 % (40.0-75.0); Hemoglobin 11.5 g/dL (12.0-15.5); Mean Corpuscular HGB CONC 32.9 g/dL (32.0-36.0); Mean Corpuscular Hemoglobin 29.7 pg (27.0-33.0); Mean Corpuscular Volume 90.4 fl (81.6-98.3); Mean Platelet Volume 10.9 fl (7.4-10.4); Platelet Count 262 10x3/uL (150-450); RBC Distribution Width 13.4 % (11.5-14.5); Red Blood Cell (RBC) Count 3.87 10x6/uL (3.90-5.03); White Blood Cell (WBC) Count 5.2 10x3/uL (3.5-10.5)
[2022-12-08 06:01] LABS: ALT (SGPT) 18 U/L (8-55); AST (SGOT) 26 U/L (5-34); Albumin 3.7 g/dL (3.4-4.8); Alkaline Phosphatase 76 U/L (40-110); Anion Gap 14 mmol/L (10-20); BUN (Urea Nitrogen) 17 mg/dL (9.8-20.1); Bilirubin, Total 0.5 mg/dL (0.2-1.2); Calc. Creatinine Clearance 47 mL/min (70-130); Calcium 8.9 mg/dL (7.8-10.44); Carbon Dioxide 21 mmol/L (23-31); Chloride 104 mmol/L (98-107); Estimated GFR 47; Globulin 2.3 g/dL (2.4-3.5); Glucose 87 mg/dL (83-110); Sodium 135 mmol/L (136-145)
[2022-12-08 06:14] VITALS: BMI 34.2
[2022-12-08] MEDS ORDERED: Clopidogrel Bisulfate 75 MG TAB PO SCH (09:00)
[2022-12-08] MEDS ORDERED: Colestipol 1 GM TAB PO SCH (09:00)
[2022-12-08] MEDS: Heparin 5,000 UNITS/ML VIAL SC SCH (09:30)
[2022-12-08] MEDS: Amlodipine 5 MG TAB PO SCH (09:33)
[2022-12-08] MEDS: Aspirin 81 mg Enteric Coated Tablet PO SCH (09:33)
[2022-12-08] MEDS: Carvedilol 6.25 MG TAB PO SCH (09:33)
[2022-12-08] MEDS ORDERED: Lidocaine 2% Viscous Solution 10 ML, Aluminum & Magnesium Hydroxide 30 ML SSW SCH (12:00)
[2022-12-08] MEDS ORDERED: Mag-Al 1200 mg/1200 mg/30 ML UDCUP PO SCH (12:00)
[2022-12-08] MEDS ORDERED: Polyethylene Glycol 3350 17 GM Packet PO SCH (12:00)
[2022-12-08] MEDS: Acetaminophen 325 MG TAB PO PRN (12:19)
[2022-12-08 12:46] VITALS: BP 143/59; TEMP 97.5
[2022-12-09] MEDS ORDERED: Polyethylene Glycol 3350 17 GM Packet PO SCH (09:00)
== END 2022-12-08 13:30 | disposition home health service (06) | DRG 251 ==
LOC: CSHERS 07:31 → CSHTELE 17:11 → OBSVTOIN 12-05 12:29
PROVIDERS: ADMIT Family Medicine; ATTEND Family Medicine
PROC: 4A023N7 Measurement of Cardiac Sampling and Pressure, Left Heart, Percutaneous Approach (ICD-10-PCS; principal; 2022-12-05)
PROC: B2111ZZ Fluoroscopy of Multiple Coronary Arteries using Low Osmolar Contrast (ICD-10-PCS; 2022-12-05)
PROC: B2151ZZ Fluoroscopy of Left Heart using Low Osmolar Contrast (ICD-10-PCS; 2022-12-05)
PROC: 4A033R1 Measurement of Arterial Saturation, Peripheral, Percutaneous Approach (ICD-10-PCS; 2022-12-06)
PROC: 02703ZZ Dilation of Coronary Artery, One Artery, Percutaneous Approach (ICD-10-PCS; 2022-12-07)
PROC: 02F03ZZ Fragmentation in Coronary Artery, One Artery, Percutaneous Approach (ICD-10-PCS; 2022-12-07)
DX: T82.855A Stenosis of coronary artery stent, initial encounter (principal); I24.9 Acute ischemic heart disease, unspecified; I25.10 Atherosclerotic heart disease of native coronary artery without angina pectoris; I12.9 Hypertensive chronic kidney disease with stage 1 through stage 4 chronic kidney disease, or unspecified chronic kidney disease; K21.9 Gastro-esophageal reflux disease without esophagitis; G25.81 Restless legs syndrome; F01.50 Vascular dementia, unspecified severity, without behavioral disturbance, psychotic disturbance, mood disturbance, and anxiety; R53.1 Weakness; E78.2 Mixed hyperlipidemia; I70.213 Atherosclerosis of native arteries of extremities with intermittent claudication, bilateral legs; Z96.653 Presence of artificial knee joint, bilateral; F41.1 Generalized anxiety disorder; R73.03 Prediabetes; N18.30 Chronic kidney disease, stage 3 unspecified; Z88.0 Allergy status to penicillin; Z88.6 Allergy status to analgesic agent; Z79.899 Other long term (current) drug therapy; Z79.82 Long term (current) use of aspirin; Z79.01 Long term (current) use of anticoagulants; Z90.710 Acquired absence of both cervix and uterus; Z98.890 Other specified postprocedural states; Z95.5 Presence of coronary angioplasty implant and graft; Z82.49 Family history of ischemic heart disease and other diseases of the circulatory system
CPT/HCPCS: 0715T; 36415; 36600; 71045; 80048; 80053; 81001; 82805; 83690; 83880; 84484; 85025; 92920; 93005; 93010; 93454; 93458; 94640; 94760; 96372; 96374; 96375; 99152; 99153; C1725; C1726; C1760; C1761; C1769; C1887; G0378; J0153; J1644; J2001; J2060; J2250; J2272; J2405; J2720; J3010; J7050; Q9967

== ENCOUNTER 2022-12-16 17:43 | Inpatient (IN) | payer MEDICARE ==
[2022-12-16 19:53] LABS: #Basophils 0.1 10x3/uL (0.0-0.2); #Eosinphils 0.3 10x3/uL (0.0-0.5); #Monocytes 0.6 10x3/uL (0.0-1.1); #Neutrophils 5.3 10x3/uL (1.5-8.4); %Basophils 1.1 % (0.0-2.0); %Lymphocytes 12.2 % (18.0-47.0); %Monocytes 8.6 % (0.0-10.0); %Neutrophils 73.8 % (40.0-75.0); Hemoglobin 10.6 g/dL (12.0-15.5); Mean Corpuscular Hemoglobin 29.4 pg (27.0-33.0); Mean Corpuscular Volume 91.7 fl (81.6-98.3); Mean Platelet Volume 11.1 fl (7.4-10.4); Platelet Count 287 10x3/uL (150-450); RBC Distribution Width 14.1 % (11.5-14.5); Red Blood Cell (RBC) Count 3.61 10x6/uL (3.90-5.03); White Blood Cell (WBC) Count 7.2 10x3/uL (3.5-10.5)
[2022-12-16 20:12] LABS: ALT (SGPT) 17 U/L (8-55); AST (SGOT) 17 U/L (5-34); Albumin 3.6 g/dL (3.4-4.8); Alkaline Phosphatase 81 U/L (40-110); Anion Gap 15 mmol/L (10-20); BUN (Urea Nitrogen) 20 mg/dL (9.8-20.1); Bilirubin, Total 0.3 mg/dL (0.2-1.2); Calc. Creatinine Clearance 0 mL/min (70-130); Calcium 8.4 mg/dL (7.8-10.44); Carbon Dioxide 23 mmol/L (23-31); Chloride 102 mmol/L (98-107); Estimated GFR 38; Globulin 1.9 g/dL (2.4-3.5); Glucose 109 mg/dL (83-110); Magnesium 1.9 mg/dL (1.6-2.6); Potassium 3.8 mmol/L (3.5-5.1); Protein, Total 5.5 g/dL (5.8-8.1); Sodium 136 mmol/L (136-145)
[2022-12-16 20:17] LABS: Bilirubin Neg (Negative); Blood, Urine Negative (Negative); Clarity Clear (Clear); Glucose, Urine (Dipstick) Normal (Negative); Ketone, Urine Negative (Negative); Leukocyte 25 (Negative); Nitrite Negative (Negative); Protein, Urine (Dipstick) 30 mg/dl (Neg-Trace); Specific Gravity, Urine 1.025 (1.005-1.030)
[2022-12-16 20:27] LABS: Bacteria/HPF None Seen HPF (None Seen); CAUTI Indications for Culture Dysuria,urgency,freq; RBC/HPF 0-3 HPF (0-3); WBC/HPF 0-3 HPF (0-3)
[2022-12-16 20:29] LABS: Urine Culture Reflex No No
[2022-12-16 21:26] LABS: CKMB 2.1 ng/mL (0-6.6)
[2022-12-16] MEDS ORDERED: Guaifenesin DM 100-10/5 ML UDCUP PO PRN (22:25)
[2022-12-16] MEDS ORDERED: Calcium Carbonate 500 MG ChewTAB PO PRN (22:25)
[2022-12-16] MEDS ORDERED: Ondansetron PF 4 MG/2 ML Vial IVP PRN (22:25)
[2022-12-16] MEDS ORDERED: Senokot S 8.6-50 MG TAB PO PRN (22:25)
[2022-12-16] MEDS ORDERED: Potassium Chloride 20 MEQ TAB PO SCH (23:30)
[2022-12-16 23:35] VITALS: BMI 23.0
[2022-12-17 04:19] LABS: #Basophils 0.1 10x3/uL (0.0-0.2); #Eosinphils 0.3 10x3/uL (0.0-0.5); #Monocytes 0.5 10x3/uL (0.0-1.1); #Neutrophils 4.9 10x3/uL (1.5-8.4); %Eosinophils 4.8 % (0.0-6.0); %Lymphocytes 13.2 % (18.0-47.0); %Monocytes 7.9 % (0.0-10.0); %Neutrophils 72.5 % (40.0-75.0); Hemoglobin 10.5 g/dL (12.0-15.5); Mean Corpuscular Hemoglobin 29.2 pg (27.0-33.0); Mean Corpuscular Volume 91.1 fl (81.6-98.3); Mean Platelet Volume 11.1 fl (7.4-10.4); Platelet Count 278 10x3/uL (150-450); RBC Distribution Width 13.8 % (11.5-14.5); White Blood Cell (WBC) Count 6.7 10x3/uL (3.5-10.5)
[2022-12-17 04:44] LABS: Anion Gap 12 mmol/L (10-20); BUN (Urea Nitrogen) 17 mg/dL (9.8-20.1); Calc. Creatinine Clearance 30 mL/min (70-130); Calcium 8.8 mg/dL (7.8-10.44); Carbon Dioxide 26 mmol/L (23-31); Chloride 103 mmol/L (98-107); Estimated GFR 43; Glucose 97 mg/dL (83-110); Magnesium 1.9 mg/dL (1.6-2.6); Potassium 3.8 mmol/L (3.5-5.1); Sodium 137 mmol/L (136-145)
[2022-12-17 05:04] LABS: CKMB 2.7 ng/mL (0-6.6)
[2022-12-17] MEDS ORDERED: Furosemide 20 MG/2 ML VIAL SLOW IVP SCH (06:00)
[2022-12-17] MEDS: Carvedilol 3.125 MG TAB PO SCH ×2 (08:26→17:54)
[2022-12-17] MEDS: Folic Acid 1 MG TAB PO SCH (08:26)
[2022-12-17] MEDS: Magnesium Oxide 400 MG TAB PO SCH (08:26)
[2022-12-17] MEDS: Clopidogrel Bisulfate 75 MG TAB PO SCH (08:26)
[2022-12-17] MEDS: Aspirin 81 mg Enteric Coated Tablet PO SCH (08:26)
[2022-12-17] MEDS ORDERED: Polyethylene Glycol 3350 17 GM Packet PO PRN (08:48)
[2022-12-17 08:49] LABS: CKMB 3.1 ng/mL (0-6.6)
[2022-12-17] MEDS: Colestipol 1 GM TAB PO SCH (09:51)
[2022-12-17] MEDS: Acetaminophen 325 MG TAB PO PRN ×2 (14:12→17:51)
[2022-12-17] MEDS: Lidocaine 4% Patch TD SCH (16:10)
[2022-12-17] MEDS ORDERED: Lidocaine 5% Patch TD SCH (16:30)
[2022-12-17] MEDS ORDERED: Spironolactone 25 MG TAB PO SCH (16:45)
[2022-12-17] MEDS ORDERED: Pramipexole Di-HCl 0.25 MG TAB PO SCH (21:00)
[2022-12-17] MEDS ORDERED: Atorvastatin Calcium 40 MG TAB PO SCH (21:00)
[2022-12-17] MEDS ORDERED: QUEtiapine 25 MG TAB PO SCH (21:00)
[2022-12-18 04:02] LABS: #Basophils 0.1 10x3/uL (0.0-0.2); #Eosinphils 0.2 10x3/uL (0.0-0.5); #Monocytes 0.5 10x3/uL (0.0-1.1); #Neutrophils 3.2 10x3/uL (1.5-8.4); %Basophils 1.2 % (0.0-2.0); %Eosinophils 3.7 % (0.0-6.0); %Lymphocytes 18.9 % (18.0-47.0); %Monocytes 10.2 % (0.0-10.0); %Neutrophils 65.6 % (40.0-75.0); Hemoglobin 10.7 g/dL (12.0-15.5); Mean Corpuscular HGB CONC 31.9 g/dL (32.0-36.0); Mean Corpuscular Hemoglobin 28.8 pg (27.0-33.0); Mean Corpuscular Volume 90.3 fl (81.6-98.3); Platelet Count 280 10x3/uL (150-450); RBC Distribution Width 13.8 % (11.5-14.5); Red Blood Cell (RBC) Count 3.71 10x6/uL (3.90-5.03); White Blood Cell (WBC) Count 4.8 10x3/uL (3.5-10.5)
[2022-12-18 04:30] LABS: Anion Gap 12 mmol/L (10-20); BUN (Urea Nitrogen) 17 mg/dL (9.8-20.1); Calc. Creatinine Clearance 25 mL/min (70-130); Carbon Dioxide 27 mmol/L (23-31); Chloride 102 mmol/L (98-107); Estimated GFR 35; Glucose 100 mg/dL (83-110); Potassium 3.9 mmol/L (3.5-5.1); Sodium 137 mmol/L (136-145)
[2022-12-18] MEDS ORDERED: Transdermal Patch Removal TOP SCH (04:30)
[2022-12-18] MEDS ORDERED: Furosemide 20 MG TAB PO SCH (06:00)
[2022-12-18] MEDS ORDERED: Spironolactone 25 MG TAB PO SCH (08:00)
[2022-12-18] MEDS ORDERED: Amlodipine 5 MG TAB PO SCH (09:00)
[2022-12-18] MEDS ORDERED: Pramipexole Di-HCl 1 MG TAB PO SCH (09:00)
[2022-12-18] MEDS: Clopidogrel Bisulfate 75 MG TAB PO SCH (09:38)
[2022-12-18] MEDS: Folic Acid 1 MG TAB PO SCH (09:39)
[2022-12-18] MEDS: Magnesium Oxide 400 MG TAB PO SCH (09:42)
[2022-12-18] MEDS: Carvedilol 3.125 MG TAB PO SCH ×2 (09:42→16:10)
[2022-12-18] MEDS: Aspirin 81 mg Enteric Coated Tablet PO SCH (09:42)
[2022-12-18] MEDS: Colestipol 1 GM TAB PO SCH (09:43)
[2022-12-18] MEDS: Acetaminophen 325 MG TAB PO PRN (09:46)
[2022-12-18] MEDS: Lidocaine 4% Patch TD SCH (16:10)
[2022-12-18 17:51] VITALS: BP 125/60; TEMP 97.8
== END 2022-12-18 20:01 | disposition home health service (06) | DRG 948 ==
LOC: CSHERS 17:43 → CSHTELE 23:05 → OBSVTOIN 12-18 09:47
PROVIDERS: ADMIT Student in an Organized Health Care Education/Training Program; ATTEND Nurse Practitioner Family
DX: R53.81 Other malaise (principal); N17.9 Acute kidney failure, unspecified; I13.0 Hypertensive heart and chronic kidney disease with heart failure and stage 1 through stage 4 chronic kidney disease, or unspecified chronic kidney disease; R53.1 Weakness; R42 Dizziness and giddiness; R60.0 Localized edema; R77.8 Other specified abnormalities of plasma proteins; T50.1X5A Adverse effect of loop [high-ceiling] diuretics, initial encounter; E78.2 Mixed hyperlipidemia; I25.10 Atherosclerotic heart disease of native coronary artery without angina pectoris; M19.90 Unspecified osteoarthritis, unspecified site; K21.9 Gastro-esophageal reflux disease without esophagitis; F01.50 Vascular dementia, unspecified severity, without behavioral disturbance, psychotic disturbance, mood disturbance, and anxiety; G25.81 Restless legs syndrome; N18.30 Chronic kidney disease, stage 3 unspecified; I50.9 Heart failure, unspecified; F51.04 Psychophysiologic insomnia; F41.1 Generalized anxiety disorder; R73.03 Prediabetes; I70.213 Atherosclerosis of native arteries of extremities with intermittent claudication, bilateral legs; G89.29 Other chronic pain; M54.9 Dorsalgia, unspecified; Z88.0 Allergy status to penicillin; Z79.899 Other long term (current) drug therapy; Z79.82 Long term (current) use of aspirin; Z95.5 Presence of coronary angioplasty implant and graft; Z96.653 Presence of artificial knee joint, bilateral; Z82.49 Family history of ischemic heart disease and other diseases of the circulatory system; Z80.9 Family history of malignant neoplasm, unspecified; Z88.5 Allergy status to narcotic agent; Z79.02 Long term (current) use of antithrombotics/antiplatelets
CPT/HCPCS: 36415; 51798; 71045; 80048; 80053; 81001; 82553; 83735; 83880; 84443; 84484; 85025; 93005; 93970; 96372; 96374; G0378; J1650; J1940

== ENCOUNTER 2023-03-11 21:13 | Observation (INO) | payer MEDICARE ==
[2023-03-11] MEDS ORDERED: Adenosine 6 MG/2 ML VIAL ONE (21:23)
[2023-03-11] MEDS ORDERED: Metoprolol Tartrate 5 MG/5 ML VIAL ONE (21:25)
[2023-03-11] MEDS ORDERED: Carvedilol 6.25 MG TAB ONE (21:52)
[2023-03-11 22:11] LABS: #Basophils 0.1 10x3/uL (0.0-0.2); #Eosinphils 0.4 10x3/uL (0.0-0.5); #Monocytes 0.8 10x3/uL (0.0-1.1); #Neutrophils 4.3 10x3/uL (1.5-8.4); %Basophils 1.6 % (0.0-2.0); %Eosinophils 6.4 % (0.0-6.0); %Lymphocytes 18.6 % (18.0-47.0); %Monocytes 11.3 % (0.0-10.0); Hematocrit 37.3 % (34.9-44.5); Hemoglobin 12.1 g/dL (12.0-15.5); Mean Corpuscular HGB CONC 32.4 g/dL (32.0-36.0); Mean Corpuscular Hemoglobin 28.9 pg (27.0-33.0); Mean Corpuscular Volume 89.2 fl (81.6-98.3); Mean Platelet Volume 10.8 fl (7.4-10.4); Platelet Count 308 10x3/uL (150-450); RBC Distribution Width 13.8 % (11.5-14.5); Red Blood Cell (RBC) Count 4.18 10x6/uL (3.90-5.03); White Blood Cell (WBC) Count 6.9 10x3/uL (3.5-10.5)
[2023-03-11 22:24] LABS: Bilirubin Neg (Negative); Blood, Urine Negative (Negative); Clarity Clear (Clear); Glucose, Urine (Dipstick) Normal (Negative); Ketone, Urine Negative (Negative); Leukocyte Negative (Negative); Nitrite Negative (Negative); Protein, Urine (Dipstick) 30 mg/dl (Neg-Trace); Specific Gravity, Urine 1.015 (1.005-1.030); Urobilinogen Normal mg/dL (Less than 2)
[2023-03-11 22:24] LABS: ALT (SGPT) 15 U/L (8-55); AST (SGOT) 24 U/L (5-34); Albumin 4.2 g/dL (3.4-4.8); Alkaline Phosphatase 90 U/L (40-110); Anion Gap 19 mmol/L (10-20); BUN (Urea Nitrogen) 30 mg/dL (9.8-20.1); Bilirubin, Total 0.3 mg/dL (0.2-1.2); Calc. Creatinine Clearance 0 mL/min (70-130); Carbon Dioxide 16 mmol/L (23-31); Chloride 109 mmol/L (98-107); Estimated GFR 29; Globulin 2.4 g/dL (2.4-3.5); Glucose 156 mg/dL (83-110); Lipase 19 U/L (8-78); Magnesium 1.8 mg/dL (1.6-2.6); Potassium 3.9 mmol/L (3.5-5.1); Protein, Total 6.6 g/dL (5.8-8.1); Sodium 140 mmol/L (136-145)
[2023-03-11 22:43] LABS: Troponin I 0.559 ng/mL (< 0.028)
[2023-03-11 22:46] LABS: Bacteria/HPF Rare-Few HPF (None Seen); CAUTI Indications for Culture Alt mental st,lethar; RBC/HPF None Seen HPF (0-3); WBC/HPF 0-3 HPF (0-3)
[2023-03-11 22:47] LABS: Urine Culture Reflex No No
[2023-03-11] MEDS ORDERED: Aspirin Chewable 81 MG TAB ONE (23:38)
[2023-03-12] MEDS ORDERED: Nitroglycerin 0.4 MG TAB (25 Tab Bottle) SL PRN (00:16)
[2023-03-12] MEDS ORDERED: Acetaminophen 325 MG TAB PO PRN (00:24)
[2023-03-12] MEDS ORDERED: Heparin 10,000 UNITS/ 10 ML VIAL SLOW IVP SCH (00:30)
[2023-03-12] MEDS ORDERED: Heparin 25,000 units/D5W 500 ML IVPB SCH (00:30)
[2023-03-12 00:49] LABS: Hematocrit 33.5 % (34.9-44.5); Hemoglobin 10.9 g/dL (12.0-15.5); Platelet Count 277 10x3/uL (150-450)
[2023-03-12 00:50] LABS: PTT 26.9 sec (22.0-33.0); Prothrombin Time 10.9 sec (9.5-12.1)
[2023-03-12 01:58] VITALS: BMI 24.2
[2023-03-12 02:36] LABS: Troponin I 0.453 ng/mL (< 0.028)
[2023-03-12 05:59] LABS: Troponin I 0.409 ng/mL (< 0.028)
[2023-03-12 06:03] LABS: Anion Gap 14 mmol/L (10-20); BUN (Urea Nitrogen) 26 mg/dL (9.8-20.1); Calc. Creatinine Clearance 29 mL/min (70-130); Calcium 8.4 mg/dL (7.8-10.44); Carbon Dioxide 21 mmol/L (23-31); Chloride 112 mmol/L (98-107); Estimated GFR 40; Glucose 100 mg/dL (83-110); Potassium 3.6 mmol/L (3.5-5.1); Sodium 143 mmol/L (136-145)
[2023-03-12] MEDS: Colestipol 1 GM TAB PO SCH (07:56)
[2023-03-12] MEDS: Folic Acid 1 MG TAB PO SCH (07:56)
[2023-03-12] MEDS: Amlodipine 5 MG TAB PO SCH (07:56)
[2023-03-12] MEDS: Magnesium Oxide 400 MG TAB PO SCH (07:56)
[2023-03-12] MEDS: Furosemide 20 MG TAB PO SCH (07:56)
[2023-03-12] MEDS: Aspirin 81 mg Enteric Coated Tablet PO SCH (07:56)
[2023-03-12] MEDS: Clopidogrel Bisulfate 75 MG TAB PO SCH (07:56)
[2023-03-12] MEDS: Ranolazine 500 MG ER.TAB PO SCH ×2 (07:56→21:21)
[2023-03-12] MEDS ORDERED: FLU VACC QS2023(65UP)/MF59C/PF 60 MCG/0.5 ML SYRINGE IM ONE (09:00)
[2023-03-12] MEDS ORDERED: Sodium Chloride 0.9% 1,000 ML IV SCH (09:45)
[2023-03-12] MEDS ORDERED: Magnesium 2 GM/50 ML(in water) 2 GM in Premix Bag 1 BAG IVPB SCH (10:00)
[2023-03-12] MEDS: Potassium Chloride 30 MEQ in Sodium Chloride 0.9% 1,000 ML IV SCH (10:19)
[2023-03-12] MEDS ORDERED: Dicyclomine 10 MG CAP PO SCH (11:00)
[2023-03-12] MEDS ORDERED: Potassium Chloride 20 MEQ TAB PO SCH (11:00)
[2023-03-12] MEDS ORDERED: QUEtiapine 25 MG TAB PO SCH (21:00)
[2023-03-12] MEDS ORDERED: Atorvastatin Calcium 40 MG TAB PO SCH (21:00)
[2023-03-12] MEDS ORDERED: Pramipexole Di-HCl 0.25 MG TAB PO SCH (21:00)
[2023-03-13] MEDS: Potassium Chloride 30 MEQ in Sodium Chloride 0.9% 1,000 ML IV SCH (06:01)
[2023-03-13] MEDS: Folic Acid 1 MG TAB PO SCH (10:45)
[2023-03-13] MEDS: Aspirin 81 mg Enteric Coated Tablet PO SCH (10:45)
[2023-03-13] MEDS: Magnesium Oxide 400 MG TAB PO SCH (10:45)
[2023-03-13] MEDS: Clopidogrel Bisulfate 75 MG TAB PO SCH (10:45)
[2023-03-13] MEDS: Ranolazine 500 MG ER.TAB PO SCH (10:45)
[2023-03-13] MEDS: Amlodipine 5 MG TAB PO SCH (10:45)
[2023-03-13] MEDS: Furosemide 20 MG TAB PO SCH (10:45)
[2023-03-13] MEDS: Colestipol 1 GM TAB PO SCH (11:32)
[2023-03-13] MEDS ORDERED: Potassium Chloride 20 MEQ TAB PO SCH (12:30)
[2023-03-13 14:51] VITALS: BP 157/67; TEMP 98.1
== END 2023-03-13 13:50 | disposition home or self-care (01) ==
LOC: CSHERS 21:13 → CSHTELE 03-12 01:13
PROVIDERS: ADMIT Family Medicine; ATTEND Family Medicine
DX: I47.10 Supraventricular tachycardia, unspecified (principal); I13.0 Hypertensive heart and chronic kidney disease with heart failure and stage 1 through stage 4 chronic kidney disease, or unspecified chronic kidney disease; I50.30 Unspecified diastolic (congestive) heart failure; N18.4 Chronic kidney disease, stage 4 (severe); E78.2 Mixed hyperlipidemia; I08.0 Rheumatic disorders of both mitral and aortic valves; I25.10 Atherosclerotic heart disease of native coronary artery without angina pectoris; N17.9 Acute kidney failure, unspecified; K21.9 Gastro-esophageal reflux disease without esophagitis; I73.9 Peripheral vascular disease, unspecified; F03.90 Unspecified dementia, unspecified severity, without behavioral disturbance, psychotic disturbance, mood disturbance, and anxiety; G25.81 Restless legs syndrome; R73.03 Prediabetes; E74.39 Other disorders of intestinal carbohydrate absorption; Z95.5 Presence of coronary angioplasty implant and graft; Z88.0 Allergy status to penicillin; Z79.899 Other long term (current) drug therapy; Z96.653 Presence of artificial knee joint, bilateral; Z88.5 Allergy status to narcotic agent
CPT/HCPCS: 71045; 80048; 80053; 81001; 83690; 83735; 83880; 84484 ×3; 85014; 85018; 85025; 85049; 85610; 85730 ×2; 90694; 93005 ×2; 93306; G0008; 36415; 90471; 93010; 96375; 96376; G0378; J0153; J1644; J3475; J3480; J7050

== ENCOUNTER 2023-08-30 17:20 | Inpatient (IN) | payer MEDICARE ==
[2023-08-30] MEDS ORDERED: fentaNYL 50 mcg/mL 1 mL Vial ONE ×3 (17:55→20:52)
[2023-08-30 18:36] LABS: #Basophils 0.04 10x3/uL (0.0-0.2); #Eosinphils 0.09 10x3/uL (0.0-0.5); #Monocytes 0.55 10x3/uL (0.0-1.1); #Neutrophils 5.31 10x3/uL (1.5-8.4); %Basophils 0.6 % (0.0-2.0); %Eosinophils 1.3 % (0.0-6.0); %Lymphocytes 11.9 % (18.0-47.0); %Monocytes 8.1 % (0.0-10.0); %Neutrophils 77.7 % (40.0-75.0); Hematocrit 37.7 % (34.9-44.5); Hemoglobin 12.3 g/dL (12.0-15.5); Mean Corpuscular HGB CONC 32.6 g/dL (32.0-36.0); Mean Corpuscular Hemoglobin 29.4 pg (27.0-33.0); Mean Corpuscular Volume 90.2 fl (81.6-98.3); Mean Platelet Volume 10.9 fl (7.4-10.4); Platelet Count 228 10x3/uL (150-450); RBC Distribution Width 14.3 % (11.5-14.5); Red Blood Cell (RBC) Count 4.18 10x6/uL (3.90-5.03); White Blood Cell (WBC) Count 6.8 10x3/uL (3.5-10.5)
[2023-08-30 18:49] LABS: PTT 27.8 sec (22.0-33.0); Prothrombin Time 10.7 sec (9.5-12.1)
[2023-08-30 18:52] LABS: ALT (SGPT) 13 U/L (8-55); AST (SGOT) 17 U/L (5-34); Albumin 3.9 g/dL (3.4-4.8); Alkaline Phosphatase 70 U/L (40-110); Anion Gap 14 mmol/L (10-20); BUN (Urea Nitrogen) 18 mg/dL (9.8-20.1); Bilirubin, Total 0.8 mg/dL (0.2-1.2); Calc. Creatinine Clearance 0 mL/min (70-130); Calcium 9.3 mg/dL (7.8-10.44); Carbon Dioxide 22 mmol/L (23-31); Chloride 105 mmol/L (98-107); Estimated GFR 45; Globulin 2.6 g/dL (2.4-3.5); Glucose 102 mg/dL (83-110); Potassium 3.9 mmol/L (3.5-5.1); Protein, Total 6.5 g/dL (5.8-8.1); Sodium 137 mmol/L (136-145)
[2023-08-30] MEDS ORDERED: Ondansetron PF 4 MG/2 ML Vial ONE (19:11)
[2023-08-30] MEDS ORDERED: Ondansetron PF 4 MG/2 ML Vial IVP PRN (21:29)
[2023-08-30] MEDS ORDERED: Calcium Carbonate 500 MG ChewTAB PO PRN (21:29)
[2023-08-30] MEDS ORDERED: Morphine 2 MG/ML VIAL SLOW IVP PRN (21:32)
[2023-08-30] MEDS ORDERED: Haloperidol Lactate 5 MG/ML VIAL ONE (21:33)
[2023-08-31] MEDS: Lidocaine 4% Patch TD SCH (00:29)
[2023-08-31] MEDS: Ibuprofen 200 MG TAB PO SCH ×2 (01:15→06:39)
[2023-08-31 05:44] LABS: Anion Gap 16 mmol/L (10-20); BUN (Urea Nitrogen) 17 mg/dL (9.8-20.1); CK (CPK) 73 U/L (29-168); Calc. Creatinine Clearance 26 mL/min (70-130); Calcium 9.5 mg/dL (7.8-10.44); Carbon Dioxide 21 mmol/L (23-31); Chloride 107 mmol/L (98-107); Estimated GFR 38; Glucose 96 mg/dL (83-110); Potassium 4.3 mmol/L (3.5-5.1); Sodium 140 mmol/L (136-145)
[2023-08-31] MEDS: Furosemide 20 MG TAB PO SCH (06:39)
[2023-08-31] MEDS: Clopidogrel Bisulfate 75 MG TAB PO SCH (12:37)
[2023-08-31] MEDS: Folic Acid 1 MG TAB PO SCH (12:37)
[2023-08-31] MEDS: Ranolazine ER 500 MG TAB PO SCH (12:37)
[2023-08-31] MEDS: Carvedilol 3.125 MG TAB PO SCH (12:37)
[2023-08-31] MEDS: Aspirin 81 mg Enteric Coated Tablet PO SCH (12:37)
[2023-08-31] MEDS: Amlodipine 5 MG TAB PO SCH (12:37)
[2023-08-31] MEDS: Magnesium Oxide 400 MG TAB PO SCH (12:37)
[2023-08-31] MEDS: Colestipol 1 GM TAB PO SCH (12:38)
[2023-08-31] MEDS: Enoxaparin 30 MG (0.3 mL) SYRINGE SC SCH (12:38)
[2023-08-31] MEDS: Transdermal Patch Removal TOP SCH (15:45)
[2023-08-31] MEDS: Atorvastatin Calcium 40 MG TAB PO SCH (21:07)
[2023-08-31] MEDS: QUEtiapine 25 MG TAB PO SCH (21:08)
[2023-08-31] MEDS: Pramipexole Di-HCl 0.25 MG TAB PO SCH (21:09)
[2023-09-01] MEDS: Acetaminophen 325 MG TAB PO PRN (06:44)
[2023-09-01] MEDS: Senokot S 8.6-50 MG TAB PO PRN (16:57)
[2023-09-01] MEDS: HYDROcodone/Acetaminophen 5/325 mg Tablet PO PRN (16:58)
[2023-09-02 04:34] LABS: Anion Gap 16 mmol/L (10-20); BUN (Urea Nitrogen) 30 mg/dL (9.8-20.1); Calc. Creatinine Clearance 24 mL/min (70-130); Calcium 9.2 mg/dL (7.8-10.44); Carbon Dioxide 20 mmol/L (23-31); Chloride 105 mmol/L (98-107); Estimated GFR 34; Glucose 91 mg/dL (83-110); Potassium 3.7 mmol/L (3.5-5.1); Sodium 137 mmol/L (136-145)
[2023-09-02] MEDS: Sodium Chloride 0.9% 1,000 ML IV SCH (11:43)
[2023-09-03 05:26] LABS: Anion Gap 14 mmol/L (10-20); BUN (Urea Nitrogen) 29 mg/dL (9.8-20.1); Calc. Creatinine Clearance 27 mL/min (70-130); Carbon Dioxide 22 mmol/L (23-31); Chloride 105 mmol/L (98-107); Estimated GFR 40; Glucose 96 mg/dL (83-110); Potassium 3.7 mmol/L (3.5-5.1); Sodium 137 mmol/L (136-145)
[2023-09-04] MEDS: Transdermal Patch Removal TOP SCH (08:21)
[2023-09-04] MEDS: Lidocaine 4% Patch TD SCH (20:11)
[2023-09-05 08:30] VITALS: BP 131/60; TEMP 97.7
== END 2023-09-05 13:27 | DRG 552 ==
LOC: CSHERS 17:20 → CSHTELE 21:06
PROVIDERS: ADMIT Student in an Organized Health Care Education/Training Program; ATTEND Internal Medicine
DX: S32.019A Unspecified fracture of first lumbar vertebra, initial encounter for closed fracture (principal); I13.0 Hypertensive heart and chronic kidney disease with heart failure and stage 1 through stage 4 chronic kidney disease, or unspecified chronic kidney disease; I50.32 Chronic diastolic (congestive) heart failure; W18.30XA Fall on same level, unspecified, initial encounter; Z88.0 Allergy status to penicillin; Z79.899 Other long term (current) drug therapy; Z79.82 Long term (current) use of aspirin; I25.10 Atherosclerotic heart disease of native coronary artery without angina pectoris; Z90.710 Acquired absence of both cervix and uterus; F41.9 Anxiety disorder, unspecified; E78.5 Hyperlipidemia, unspecified; K21.9 Gastro-esophageal reflux disease without esophagitis; Z96.653 Presence of artificial knee joint, bilateral; Z66 Do not resuscitate; F03.90 Unspecified dementia, unspecified severity, without behavioral disturbance, psychotic disturbance, mood disturbance, and anxiety; G25.81 Restless legs syndrome; N18.30 Chronic kidney disease, stage 3 unspecified; I73.9 Peripheral vascular disease, unspecified; S09.90XA Unspecified injury of head, initial encounter; W19.XXXA Unspecified fall, initial encounter
CPT/HCPCS: 36415; 70450; 71045; 72100; 72125; 72128; 72131; 72170; 72192; 80048; 80053; 82550; 85025; 85610; 85730; 93005; 94760; 94762; 96374; 96375; 96376; J1630; J1650; J2405; J3010; J7050

== ENCOUNTER 2023-11-01 11:02 | Emergency (ER) | payer MEDICARE | END 2023-11-01 15:00 | disposition home or self-care (01) | LOC: CSHERS 11:02 | DX: S01.01XA Laceration without foreign body of scalp, initial encounter (principal); I13.0 Hypertensive heart and chronic kidney disease with heart failure and stage 1 through stage 4 chronic kidney disease, or unspecified chronic kidney disease; N18.9 Chronic kidney disease, unspecified; I50.9 Heart failure, unspecified; W19.XXXA Unspecified fall, initial encounter | CPT/HCPCS: 12002; 70450; 72125 ==

== ENCOUNTER 2024-04-14 08:52 | Inpatient (IN) | payer MEDICARE ==
[2024-04-14 09:52] LABS: #Basophils 0.06 10x3/uL (0.0-0.2); #Eosinophils 0.32 10x3/uL (0.0-0.5); #Monocytes 0.54 10x3/uL (0.0-1.1); #Neutrophils 6.39 10x3/uL (1.5-8.4); %Basophils 0.7 % (0.0-2.0); %Lymphocytes 8.7 % (18.0-47.0); %Monocytes 6.7 % (0.0-10.0); %Neutrophils 79.4 % (40.0-75.0); Hematocrit 33.1 % (34.9-44.5); Hemoglobin 10.4 g/dL (12.0-15.5); Mean Corpuscular HGB CONC 31.4 g/dL (32.0-36.0); Mean Corpuscular Hemoglobin 27.1 pg (27.0-33.0); Mean Corpuscular Volume 86.2 fL (81.6-98.3); Mean Platelet Volume 10.4 fL (7.4-10.4); Platelet Count 311 10x3/uL (150-450); RBC Distribution Width 15.3 % (11.5-14.5); Red Blood Cell (RBC) Count 3.84 10x6/uL (3.90-5.03); White Blood Cell (WBC) Count 8.1 10x3/uL (3.5-10.5)
[2024-04-14 10:04] LABS: Anion Gap 16 mmol/L (10-20); BUN (Urea Nitrogen) 32 mg/dL (9.8-20.1); Calc. Creatinine Clearance 0 mL/min (70-130); Calcium 8.8 mg/dL (7.8-10.44); Carbon Dioxide 21 mmol/L (23-31); Chloride 108 mmol/L (98-107); Estimated GFR 36; Glucose 91 mg/dL (83-110); Potassium 4.5 mmol/L (3.5-5.1); Sodium 140 mmol/L (136-145)
[2024-04-14 10:09] LABS: Troponin I 0.047 ng/mL (< 0.028)
[2024-04-14 12:21] LABS: Troponin I 0.194 ng/mL (< 0.028)
[2024-04-14] MEDS ORDERED: Adenosine 6 mg (2 mL) VIAL ONE ×3 (13:57→15:23)
[2024-04-14] MEDS ORDERED: Acetaminophen 650 MG Suppository PR PRN (14:27)
[2024-04-14] MEDS ORDERED: Melatonin 3 MG TAB PO PRN (14:30)
[2024-04-14] MEDS ORDERED: Electrolyte Replacement Protocol 1 EACH FS PRN (14:30)
[2024-04-14 16:33] VITALS: BMI 21.3
[2024-04-14] MEDS: Acetaminophen 325 MG TAB PO PRN (17:31)
[2024-04-14] MEDS: Furosemide 20 MG (2 mL) VIAL SLOW IVP SCH (18:42)
[2024-04-15] MEDS: Metoprolol Tartrate 5 MG (5 mL) VIAL IVP SCH (02:10)
[2024-04-15] MEDS: Metoprolol Tartrate 5 MG (5 mL) VIAL ONE (02:10)
[2024-04-15 03:32] LABS: #Basophils 0.09 10x3/uL (0.0-0.2); #Eosinophils 0.35 10x3/uL (0.0-0.5); #Monocytes 0.57 10x3/uL (0.0-1.1); #Neutrophils 4.84 10x3/uL (1.5-8.4); %Basophils 1.3 % (0.0-2.0); %Eosinophils 5.2 % (0.0-6.0); %Monocytes 8.5 % (0.0-10.0); %Neutrophils 72.7 % (40.0-75.0); Hematocrit 35.6 % (34.9-44.5); Hemoglobin 11.5 g/dL (12.0-15.5); Mean Corpuscular HGB CONC 32.3 g/dL (32.0-36.0); Mean Corpuscular Hemoglobin 27.8 pg (27.0-33.0); Mean Platelet Volume 10.4 fL (7.4-10.4); Platelet Count 336 10x3/uL (150-450); RBC Distribution Width 15.4 % (11.5-14.5); Red Blood Cell (RBC) Count 4.14 10x6/uL (3.90-5.03); White Blood Cell (WBC) Count 6.7 10x3/uL (3.5-10.5)
[2024-04-15 03:47] LABS: Anion Gap 16 mmol/L (10-20); BUN (Urea Nitrogen) 25 mg/dL (9.8-20.1); Calc. Creatinine Clearance 25 mL/min (70-130); Calcium 9.6 mg/dL (7.8-10.44); Carbon Dioxide 19 mmol/L (23-31); Chloride 107 mmol/L (98-107); Estimated GFR 42; Glucose 92 mg/dL (83-110); Magnesium 2.1 mg/dL (1.6-2.6); Potassium 3.9 mmol/L (3.5-5.1); Sodium 138 mmol/L (136-145)
[2024-04-15] MEDS: Magnesium Oxide 400 MG TAB PO SCH (08:10)
[2024-04-15] MEDS: Spironolactone 25 MG TAB PO SCH (08:10)
[2024-04-15] MEDS: Furosemide 20 MG TAB PO SCH (08:10)
[2024-04-15] MEDS: Aspirin 81 mg Enteric Coated Tablet PO SCH (08:10)
[2024-04-15] MEDS: Ranolazine ER 500 MG TAB PO SCH (08:10)
[2024-04-15] MEDS: Carvedilol 3.125 MG TAB PO SCH (08:11)
[2024-04-15] MEDS: Clopidogrel Bisulfate 75 MG TAB PO SCH (08:11)
[2024-04-15] MEDS: Amlodipine 5 MG TAB PO SCH (08:11)
[2024-04-15] MEDS ORDERED: Polyethylene Glycol 3350 17 GM Packet PO PRN (08:23)
[2024-04-15] MEDS: Potassium Chloride 20 MEQ TAB PO SCH (10:12)
[2024-04-15] MEDS: Bisacodyl 10 MG SUPP PR PRN (10:12)
[2024-04-15 10:16] VITALS: BMI 21.3
[2024-04-15 15:43] LABS: Bilirubin Neg (Negative); Blood, Urine Negative (Negative); Clarity Clear (Clear); Glucose, Urine (Dipstick) Normal (Negative); Ketone, Urine 5 mg/dL (Negative); Leukocyte Negative (Negative); Nitrite Negative (Negative); Protein, Urine (Dipstick) 15 mg/dl (Neg-Trace); Specific Gravity, Urine 1.005 (1.005-1.030); Urobilinogen Normal mg/dL (Less than 2)
[2024-04-15 16:03] LABS: RBC/HPF None Seen HPF (0-3)
[2024-04-15 16:04] LABS: CAUTI Indications for Culture Alt mental st,lethar; Squamous Epithelial 0-3 HPF (0-3); WBC/HPF 0-3 HPF (0-3)
[2024-04-15 16:05] LABS: Bacteria/HPF Rare-Few HPF (None Seen); Urine Culture Reflex No No
[2024-04-15] MEDS: Carvedilol 6.25 MG TAB PO SCH (17:01)
[2024-04-16 03:15] LABS: #Basophils 0.06 10x3/uL (0.0-0.2); #Eosinophils 0.37 10x3/uL (0.0-0.5); #Monocytes 0.79 10x3/uL (0.0-1.1); #Neutrophils 4.63 10x3/uL (1.5-8.4); %Basophils 0.9 % (0.0-2.0); %Eosinophils 5.4 % (0.0-6.0); %Lymphocytes 14.2 % (18.0-47.0); %Monocytes 11.5 % (0.0-10.0); %Neutrophils 67.6 % (40.0-75.0); Hematocrit 37.2 % (34.9-44.5); Hemoglobin 11.8 g/dL (12.0-15.5); Mean Corpuscular HGB CONC 31.7 g/dL (32.0-36.0); Mean Corpuscular Hemoglobin 27.1 pg (27.0-33.0); Mean Corpuscular Volume 85.3 fL (81.6-98.3); Mean Platelet Volume 10.2 fL (7.4-10.4); Platelet Count 364 10x3/uL (150-450); RBC Distribution Width 15.4 % (11.5-14.5); Red Blood Cell (RBC) Count 4.36 10x6/uL (3.90-5.03); White Blood Cell (WBC) Count 6.9 10x3/uL (3.5-10.5)
[2024-04-16 03:32] LABS: Anion Gap 17 mmol/L (10-20); BUN (Urea Nitrogen) 33 mg/dL (9.8-20.1); Calc. Creatinine Clearance 22 mL/min (70-130); Calcium 9.7 mg/dL (7.8-10.44); Carbon Dioxide 19 mmol/L (23-31); Chloride 107 mmol/L (98-107); Estimated GFR 36; Glucose 101 mg/dL (83-110); Potassium 4.6 mmol/L (3.5-5.1); Sodium 138 mmol/L (136-145)
[2024-04-16 08:29] VITALS: TEMP 98.6
[2024-04-16] MEDS: Amlodipine 5 MG TAB PO SCH (08:32)
[2024-04-16] MEDS: Famotidine 20 MG TAB PO SCH (09:41)
[2024-04-16] MEDS: Folic Acid 1 MG TAB PO SCH (09:41)
[2024-04-16 13:30] VITALS: BP 125/58
[2024-04-16] MEDS ORDERED: Pramipexole Di-HCl 0.25 MG TAB PO SCH (21:00)
== END 2024-04-16 16:10 | DRG 281 ==
LOC: CSHERS 08:52 → CSHTELE 15:36 → OBSVTOIN 04-15 15:52
PROVIDERS: ADMIT Internal Medicine; ATTEND Internal Medicine
DX: I47.10 Supraventricular tachycardia, unspecified (principal); I13.0 Hypertensive heart and chronic kidney disease with heart failure and stage 1 through stage 4 chronic kidney disease, or unspecified chronic kidney disease; I21.A1 Myocardial infarction type 2; I50.32 Chronic diastolic (congestive) heart failure; I25.10 Atherosclerotic heart disease of native coronary artery without angina pectoris; I73.9 Peripheral vascular disease, unspecified; M19.90 Unspecified osteoarthritis, unspecified site; G25.81 Restless legs syndrome; K21.9 Gastro-esophageal reflux disease without esophagitis; G89.29 Other chronic pain; F01.50 Vascular dementia, unspecified severity, without behavioral disturbance, psychotic disturbance, mood disturbance, and anxiety; R73.03 Prediabetes; E78.2 Mixed hyperlipidemia; N18.30 Chronic kidney disease, stage 3 unspecified; Z95.5 Presence of coronary angioplasty implant and graft
CPT/HCPCS: 36415; 71045; 80048; 81001; 83735; 84443; 84484; 85025; 93005; 93010; 96374; 96375; G0378; J0153; J1940